=== PATIENT | male | born 1960 | race Caucasian/White ===

== ENCOUNTER 2020-12-26 15:05 | Emergency (ER) | payer OTHER ==
[~2020-12-26] VITALS: Ht 175.2 cm; Wt 80.0 kg
[2020-12-26] MEDS ORDERED: NS IV 1000 ML 1,000 ML IV STA (15:12)
--- NOTE | 2020-12-26 15:12 | ED General ---
General Stated Complaint: INCISIONAL BLEED History of Present Illness Date Seen by Provider: Dec 26, 2020 Time Seen by Provider: 15:10 Initial Comments 60-year-old male presents with post incisional bleeding. Patient had lung surgery on October 15 then again on December 09 on his left side. Patient reports today that he started having significant amount of bleeding come out of the incision on the left side of his chest. Incision is approximate 3 inch incision under his left breast. Patient is also got some minor shortness of breath. Patient [facility] at the [facility] in [place] and then the November surgery was done in the [facility]. Patient has some minor chronic shortness of breath but is significantly worse today. No report of fever. Patient's initial surgery was a partial lobectomy with a complete lobectomy with a second surgery. Allergies and Home Medications Allergies Coded Allergies: No Known Drug Allergies (Unverified , 12/26/20) Home Medications Hydrocodone Bit/Acetaminophen 1 Tab Tab, 1 TAB PO Q4H PRN for PAIN-MODERATE (5- 7), (Reported) Last Action: New Order Lisinopril 20 Mg Tablet, 20 MG PO DAILY, (Reported) Last Action: New Order Metoprolol Tartrate 25 Mg Tablet, 12.5 MG PO BID, (Reported) Last Action: New Order Omeprazole 20 Mg Capsule.dr, 20 MG PO DAILY, (Reported) Last Action: New Order Potassium Chloride 20 Meq Tablet.er, 20 MEQ PO DAILY, (Reported) Last Action: New Order Patient Home Medication List Home Medication List Reviewed: Yes Review of Systems Review of Systems Constitutional: No chills, No fever Respiratory: cough, short of breath Gastrointestinal: No abdominal pain, No nausea, No vomiting Musculoskeletal: no symptoms reported Skin: see HPI Psychiatric/Neurological: No Symptoms Reported Hematologic/Lymphatic: No Symptoms Reported Immunological/Allergic: no symptoms reported Physical Exam Vital Signs Vital Signs - First Documented 12/26/20 15:05 Temp 37.4 Pulse 140 Resp 41 B/P (MAP) 97/59 (72) Pulse Ox 95 O2 Delivery Nasal Cannula O2 Flow Rate 2.00 Capillary Refill : Height, Weight, BMI Height: '" Weight: lbs. oz. kg; BMI Method: General Appearance: Mild Distress HEENT: PERRL/EOMI, Moist Mucous Membranes Respiratory: Other (No lung sounds on the left, mild tachypnea) Cardiovascular: Tachycardia Extremity: Normal Capillary Refill, Normal Inspection Neurologic/Psychiatric: Alert, Oriented x3 Skin: Other (Approximate 10 cm incision with dehiscence and mild active bleeding in the left anterior chest wall right below breast, mild greenish discoloration to the skin consistent with probable infection) Focused Exam Lactate Level 12/26/20 15:15: Lactic Acid Level 1.73 Lactic Acid Level Laboratory Tests Test 12/26/20 15:15 Lactic Acid Level 1.73 MMOL/L (0.50-2.00) Procedures/Interventions Reason for Intubation: Acute respiratory failure Date of ETT Placement: Dec 26, 2020 Intubation Method: orotracheal Tube Size: 7.5 Medications: Etomidate, Rocuronium Positive End Tide CO2: Yes Intubation Complications: no complications ET tube below clavicles and above jase in appropriate position Progress/Results/Core Measures Suspected Sepsis SIRS Temperature: Pulse: Respiratory Rate: Laboratory Tests 12/26/20 15:15: White Blood Count 12.7H 12/26/20 18:26: White Blood Count 18.3H Blood Pressure / Mean: 12/26/20 15:15: Lactic Acid Level 1.73 Laboratory Tests 12/26/20 15:15: Creatinine 1.13, INR Comment 1.2, Platelet Count 615H, Total Bilirubin 0.4 12/26/20 18:26: Platelet Count 570H Results/Orders Lab Results Laboratory Tests Test 12/26/20 15:15 12/26/20 16:30 12/26/20 17:40 12/26/20 18:26 Range/Units White Blood Count 12.7 H 18.3 H 4.3-11.0 10^3/uL Red Blood Count 3.10 L 2.54 L 4.30-5.52 10^6/uL Hemoglobin 9.0 L 7.5 L 13.3-17.7 g/dL Hematocrit 28 L 24 L 40-54 % Mean Corpuscular Volume 90 93 80-99 fL Mean Corpuscular Hemoglobin 29 30 25-34 pg Mean Corpuscular Hemoglobin Concent 32 32 32-36 g/dL Red Cell Distribution Width 17.5 H 17.8 H 10.0-14.5 % Platelet Count 615 H 570 H 130-400 10^3/uL Mean Platelet Volume 10.2 10.2 9.0-12.2 fL Immature Granulocyte % (Auto) 2 % Neutrophils (%) (Auto) 79 H 42-75 % Lymphocytes (%) (Auto) 7 L 12-44 % Monocytes (%) (Auto) 13 H 0-12 % Eosinophils (%) (Auto) 0 0-10 % Basophils (%) (Auto) 0 0-10 % Neutrophils # (Auto) 10.0 H 1.8-7.8 X 10^3 Lymphocytes # (Auto) 0.9 L 1.0-4.0 X 10^3 Monocytes # (Auto) 1.6 H 0.0-1.0 X 10^3 Eosinophils # (Auto) 0.0 0.0-0.3 10^3/uL Basophils # (Auto) 0.0 0.0-0.1 10^3/uL Immature Granulocyte # (Auto) 0.2 H 0.0-0.1 10^3/uL Neutrophils % (Manual) 83 % Lymphocytes % (Manual) 8 % Monocytes % (Manual) 8 % Band Neutrophils 1 % Prothrombin Time 15.3 H 12.2-14.7 SEC INR Comment 1.2 0.8-1.4 Activated Partial Thromboplast Time 35 24-35 SEC Sodium Level 132 L 135-145 MMOL/L Potassium Level 4.7 3.6-5.0 MMOL/L Chloride Level 96 L 98-107 MMOL/L Carbon Dioxide Level 19 L 21-32 MMOL/L Anion Gap 17 H 5-14 MMOL/L Blood Urea Nitrogen 59 H 7-18 MG/DL Creatinine 1.13 0.60-1.30 MG/DL Estimat Glomerular Filtration Rate 66 BUN/Creatinine Ratio 52 Glucose Level 243 H 70-105 MG/DL Lactic Acid Level 1.73 0.50-2.00 MMOL/L Calcium Level 9.0 8.5-10.1 MG/DL Corrected Calcium 10.1 8.5-10.1 MG/DL Total Bilirubin 0.4 0.1-1.0 MG/DL Aspartate Amino Transf (AST/SGOT) 9 5-34 U/L Alanine Aminotransferase (ALT/SGPT) 9 0-55 U/L Alkaline Phosphatase 88 40-136 U/L Total Protein 6.7 6.4-8.2 GM/DL Albumin 2.6 L 3.2-4.5 GM/DL SARS-CoV-2 RNA (RT-PCR) Not Detected Not Detecte Blood Gas Puncture Site UNKNOWN Blood Gas Patient Temperature 37.4 Arterial Blood pH 7.18 *L 7.37-7.43 Arterial Blood Partial Pressure CO2 58 H 35-45 MMHG Arterial Blood Partial Pressure O2 57 L 79-93 MMHG Arterial Blood HCO3 22 L 23-27 MMOL/L Arterial Blood Total CO2 23.4 21.0-31.0 MMOL/L Arterial Blood Oxygen Saturation 81 L 94-100 % Arterial Blood Base Excess -7.3 L -2.5-2.5 MMOL/L Jasvir Test NEGATIVE Blood Gas Ventilator Setting NO Blood Gas Inspired Oxygen 2 My Orders Orders - NUÑEZ,GLENROY L DO Cbc With Automated Diff (12/26/20 15:12) Comprehensive Metabolic Panel (12/26/20 15:12) Lactic Acid Analyzer (12/26/20 15:12) Protime With Inr (12/26/20 15:12) Partial Thromboplastin Time (12/26/20 15:12) Type And Screen (12/26/20 15:12) Ct Angio Chest W (12/26/20 15:12) Chest 1 View Ap/Pa Only (12/26/20 15:12) Ns Iv 1000 Ml (Sodium Chloride 0.9%) (12/26/20 15:12) Ceftriaxone (Rocephin) (12/26/20 15:30) Manual Differential (12/26/20 15:15) Blood Culture (12/26/20 15:15) Blood Culture (12/26/20 15:39) Iohexol Injection (Omnipaque 350 Mg/Ml 1 (12/26/20 16:00) Di Iv Start (Assessment) .IV start (12/26/20 15:52) Received Contrast (Hold Metformin- Contr (12/26/20 16:00) Sodium Chloride Flush (Catheter Flush Sy (12/26/20 16:00) Ns (Ivpb) (Sodium Chloride 0.9% Ivpb Bag (12/26/20 16:00) Covid 19 Inhouse Test (12/26/20 16:14) Albuterol/Ipra Inhalation Soln (Duoneb I (12/26/20 16:15) Svn Small Volume Nebulizer (12/26/20 16:14) Tranexamic Acid Injection (Cyklokapron I (12/26/20 17:07) Ns Iv 1000 Ml (Sodium Chloride 0.9%) (12/26/20 17:28) Propofol Drip (Icu) (Diprivan Drip (Icu) (12/26/20 17:45) Arterial Blood Gas (12/26/20 17:44) Arterial Blood Gas (12/26/20 17:40) Chest 1 View Ap/Pa Only (12/26/20 17:51) Ketamine Syringe (Ketamine Syringe) (12/26/20 18:15) Cbc No Diff (12/26/20 18:19) Ns Iv 1000 Ml (Sodium Chloride 0.9%) (12/26/20 18:17) Ns Iv 500 Ml (Sodiu... W/Ketamine Inject (12/26/20 18:45) Ketamine Injection (Ketalar Injection) (12/26/20 18:50) Ns Iv 500 Ml (Sodium Chloride 0.9%) (12/26/20 18:50) Ns Iv 500 Ml (Sodium Chloride 0.9%) (12/26/20 19:00) Ns Iv 1000 Ml (Sodium Chloride 0.9%) (12/26/20 19:46) Medications Given in ED Current Medications Medications Dose Ordered Sig/Sandi Route Start Time Stop Time Status Last Admin Dose Admin Albuterol/ Ipratropium 3 ml ONCE ONCE INH 12/26/20 16:15 12/26/20 16:16 DC 12/26/20 16:29 3 ML Ceftriaxone Sodium 1000 mg/ Sterile Water 10 ml @ 200 mls/hr ONCE ONCE IV 12/26/20 15:30 12/26/20 15:32 DC 12/26/20 15:39 200 MLS/HR Iohexol 100 ml ONCE ONCE IV 12/26/20 16:00 12/26/20 16:01 DC 12/26/20 16:26 100 ML Ketamine HCl 500 mg STK-MED ONCE .ROUTE 12/26/20 18:50 12/26/20 18:53 DC 12/26/20 19:05 500 MG Sodium Chloride 10 ml NEEDED PRN IV 12/26/20 16:00 12/26/20 21:00 DC 12/26/20 16:26 10 ML Sodium Chloride 100 ml ONCE ONCE IV 12/26/20 16:00 12/26/20 16:01 DC 12/26/20 16:26 80 ML Sodium Chloride 500 ml @ ud STK-MED ONCE .ROUTE 12/26/20 18:50 12/26/20 18:53 DC 12/26/20 18:50 20 MLS/HR Sodium Chloride 1,000 ml @ ud STK-MED ONCE .ROUTE 12/26/20 17:28 12/26/20 17:32 DC 12/26/20 17:34 999 MLS/HR Sodium Chloride 1,000 ml @ ud STK-MED ONCE .ROUTE 12/26/20 18:17 12/26/20 18:20 DC 12/26/20 18:20 150 MLS/HR Tranexamic Acid 1,000 mg STK-MED ONCE .ROUTE 12/26/20 17:07 12/26/20 17:11 DC 12/26/20 17:10 1,000 MG Vital Signs/I&O 12/26/20 12/26/20 12/26/20 15:05 15:05 17:50 Temp 37.4 Pulse 140 139 Resp 41 B/P (MAP) 97/59 (72) 125/45 Pulse Ox 95 O2 Delivery Nasal Cannula Room Air O2 Flow Rate 2.00 2.00 Capillary Refill : Progress Note : Progress Note Patient had a clean dressing placed over his incisional dehiscence. While here in the ER patient continued to cough and then developed gross hemoptysis with his cough. Patient's O2 saturations then dropped into the 70s and we were unable to get it to improve with high flow nasal cannula. Patient was then intubated with a 7.5 ET tube using a glide scope with no complications. Patient was placed on a very low tidal volume at 350, PEEP of approximately 8 on her percent oxygen. Patient's O2 saturations improved to 100%. Patient was very difficult to keep sedated with combination of propofol ketamine and Versed used. I did initially call [facility] [place] who felt that they would not be able to appropriately treat patient and recommended the closest appropriate. I called [facility] who felt that patient needed to go back to the [facility] in [place]. They felt that since patient had minimal blood still coming out the ET tube and that his oxygen was at however sent that they declined transfer for him to go to the hospital with the cardiothoracic surgeon that performed the surgery. I called Francisco Javier Sanchez, [facility] in [facility] and patient was accepted by Dr. Garay who was patient's cardiothoracic surgeon. Patient remain in critical/guarded condition but O2 saturations remained stable at 100%. Patient did have a hemoglobin drop from 9- 7.5. Patient was also given TXA with concerns for possible hemothorax. Patient's chest x-ray did show significant infiltrate development from his initial chest x-ray. Patient was transferred via helicopter. Diagnostic Imaging Diagonstic Imaging: CT Plain Films/CT/US/NM/MRI: chest Comments Date of Exam:12/26/20 CT ANGIO CHEST W PROCEDURE: CT angiography of the chest with contrast. TECHNIQUE: Multiple contiguous axial images were obtained through the chest after uneventful bolus administration of intravenous contrast. 3D reconstructed CTA MIP acquisitions were also performed. Auto Exposure Controls were utilized during the CT exam to meet ALARA standards for radiation dose reduction. INDICATION: Lung cancer. Bleeding at surgical site. COMPARISON: Chest x-ray from the same day. FINDINGS: The heart is normal in size. The pulmonary arteries are diagnostic to the early segmental level but no filling defect is seen to indicate a pulmonary embolus. No significant lymphadenopathy is seen in the mediastinum. The right lung is clear with no pleural effusion or pneumothorax. There is a left hydropneumothorax which is moderate in size and appears loculated to the left upper lung. There is a large soft tissue density at the anterior right lung which measures up to 9.0 x 4.3 cm on axial imaging. There is significant suture material throughout the upper lung. There is gas extending through the pleural space at the anterior left lung base into the chest wall and into the soft tissues of the left chest. This appears contiguous with the skin incision site. There is also a small likely loculated effusion at the left lung base. Imaged portions of the upper abdomen demonstrate a 2.6 cm left adrenal nodule which is indeterminate. There appear to be fractures of the left anterior 5th and 6th ribs or, more possibly, osteotomies. IMPRESSION: 1. Moderate-sized loculated hydropneumothorax at the left lung apex with small loculated pleural effusion at the left lung base. 2. Large soft tissue density at the anterior left lung. This could represent consolidated lung, hemorrhage, infection or residual neoplasm. No active contrast extravasation is seen. No prior CT is available. 3. Significant gas extending through the anterior left pleural space into the soft tissues of the chest. There are fractures or osteotomies of the anterior left ribs. 4. Indeterminate left adrenal nodule, could represent metastatic lesion. Recommend nonemergent follow-up with adrenal mass contrast protocol. Reviewed: Reviewed by Me, Discussed w/Radiologist, Reviewed/Discussed Diagonstic Imaging: Xray Plain Films/CT/US/NM/MRI: chest Comments ate of Exam:12/26/20 CHEST 1 VIEW AP/PA ONLY INDICATION: Lung cancer. EXAMINATION: Portable erect AP chest at 3:31 p.m. COMPARISON: There is no prior study available for comparison. FINDINGS: The left lung does seem smaller than the right lung and there are surgical clips overlying the left lung base. There are also vague areas of increased density throughout the left perihilar region, left mid lung and left lower lobe. Given the patient's history of lung cancer, these abnormal densities could be neoplastic in nature. The possibility that there is an element of pneumonia/atelectasis present should also be considered. The left apex does seem somewhat lucent but there is no clear evidence for a pneumothorax. The right lung is clear. The heart size is within normal limits. The mediastinum is not widened. There is a small rounded area of increased density near the costovertebral junction at T5-T6. This may be secondary to degenerative disease. An isolated osteoblastic metastatic focus should also be considered. IMPRESSION: 1. The appearance of the left lung is grossly abnormal. Whether this is related to pneumonia/atelectasis, neoplastic disease or a combination of both is not certain. If previous studies are available they would be helpful comparison. If there are no prior exams, then CT of the chest would be recommended for further study. 2. There is no acute cardiopulmonary abnormality noted otherwise. Reviewed: Reviewed by Me, Reviewed/Discussed Diagonstic Imaging: Xray Plain Films/CT/US/NM/MRI: chest Comments Date of Exam:12/26/20 CHEST 1 VIEW AP/PA ONLY INDICATION: Tube placement . TECHNIQUE: Single view chest 5:41 PM. CORRELATION STUDY: 12/26/2020. FINDINGS: Endotracheal tube has been placed, tip projecting over the trachea above the jase and below the clavicles. Extensive progressive consolidation of the left lung which is rather dense and with lung volume loss has progressed. Right lung is a slightly hyperinflated. Mediastinal structures are largely obscured but appear generally stable. Presumed skin maya over the left lower chest. IMPRESSION: Interval intubation. Extensive and progressive consolidation through the large portion of the smaller left lung. Critical Care Note Critical Care Total Time (minutes) Patient is critical care time was approximately 2.5 hours Departure Impression Primary Impression: Acute respiratory failure Qualified Codes: J96.01 - Acute respiratory failure with hypoxia; J96.02 - Acute respiratory failure with hypercapnia Additional Impressions: Hemoptysis Abnormal finding on lung imaging Disposition: XF T-TRM HOSP Condition: Critical Transfer Transfer Reason: Exceeds level of care Time Spoke to Accepting Phy: 19:00 Transfer Facility: [facility] in [facility] Method of Transfer: GLENROY Carballo DO Dec 26, 2020 15:12
[2020-12-26 15:30] LABS: HEMATOCRIT 28 % (40-54); MEAN CORPUSCULAR HEMOGLOBIN 29 pg (25-34); MEAN CORPUSCULAR HGB CONC 32 g/dL (32-36); MEAN CORPUSCULAR VOLUME 90 fL (80-99); WHITE BLOOD COUNT 12.7 10^3/uL (4.3-11.0)
[2020-12-26] MEDS ORDERED: cefTRIAXone 1,000 MG in WATER (STERILE) FOR INJECTION 10 ML IV ONE (15:30)
[2020-12-26 15:31] LABS: BASOPHILS % (AUTO) 0 % (0-10); EOSINOPHILS % (AUTO) 0 % (0-10); LYMPHOCYTES # (AUTO) 0.9 X 10^3 (1.0-4.0); LYMPHOCYTES % (AUTO) 7 % (12-44); MEAN PLATELET VOLUME 10.2 fL (9.0-12.2); MONOCYTES # (AUTO) 1.6 X 10^3 (0.0-1.0); MONOCYTES % (AUTO) 13 % (0-12); NEUTROPHILS % (AUTO) 79 % (42-75); PLATELET COUNT 615 10^3/uL (130-400)
[2020-12-26 15:54] LABS: INR 1.2 (0.8-1.4); PROTHROMBIN TIME PATIENT 15.3 SEC (12.2-14.7)
[2020-12-26 15:58] LABS: ALBUMIN 2.6 GM/DL (3.2-4.5); BILIRUBIN,TOTAL 0.4 MG/DL (0.1-1.0); CREATININE SERUM 1.13 MG/DL (0.60-1.30); POTASSIUM 4.7 MMOL/L (3.6-5.0); TOTAL PROTEIN 6.7 GM/DL (6.4-8.2)
[2020-12-26] MEDS ORDERED: HOLD METFORMIN - RECEIVED CONTRAST 20 ML VIAL IV SCH (16:00)
[2020-12-26] MEDS ORDERED: IOHEXOL 350 MG/ML 100 ML (OMNIPAQUE 350) VIAL IV ONE (16:00)
[2020-12-26] MEDS ORDERED: NS 100 ML (IVPB) BAG IV ONE (16:00)
[2020-12-26] MEDS ORDERED: CATHETER FLUSH 10 ML SYR IV PRN (16:00)
--- NOTE | 2020-12-26 16:06 | Diagnostic Imaging Report ---
INDICATION: Lung cancer. EXAMINATION: Portable erect AP chest at 3:31 p.m. COMPARISON: There is no prior study available for comparison. FINDINGS: The left lung does seem smaller than the right lung and there are surgical clips overlying the left lung base. There are also vague areas of increased density throughout the left perihilar region, left mid lung and left lower lobe. Given the patient's history of lung cancer, these abnormal densities could be neoplastic in nature. The possibility that there is an element of pneumonia/atelectasis present should also be considered. The left apex does seem somewhat lucent but there is no clear evidence for a pneumothorax. The right lung is clear. The heart size is within normal limits. The mediastinum is not widened. There is a small rounded area of increased density near the costovertebral junction at T5-T6. This may be secondary to degenerative disease. An isolated osteoblastic metastatic focus should also be considered. IMPRESSION: 1. The appearance of the left lung is grossly abnormal. Whether this is related to pneumonia/atelectasis, neoplastic disease or a combination of both is not certain. If previous studies are available they would be helpful comparison. If there are no prior exams, then CT of the chest would be recommended for further study. 2. There is no acute cardiopulmonary abnormality noted otherwise. Dictated by: Dictated on workstation # [id number]
[2020-12-26] MEDS ORDERED: RT-ALBUTEROL/IPRATROPIUM 3 ML (DUONEB) VIAL INH ONE (16:15)
[2020-12-26] MEDS ORDERED: POTA-51 PO (16:24)
[2020-12-26] MEDS ORDERED: METO-333 PO (16:24)
[2020-12-26] MEDS ORDERED: TIOT4MIS3 IH (16:24)
[2020-12-26] MEDS ORDERED: LISI20TA26 PO (16:24)
[2020-12-26] MEDS ORDERED: ACHD5005 PO (16:24)
[2020-12-26] MEDS ORDERED: OMEP20CA18 PO (16:24)
[2020-12-26 16:25] LABS: BAND NEUTROPHILS 1 %; LYMPHOCYTES % (MANUAL) 8 %; MONOCYTES % (MANUAL) 8 %; NEUTROPHILS % (MANUAL) 83 %
[2020-12-26] MEDS ORDERED: TRANEXAMIC ACID 100 MG/ML 10 ML INJECTION ONE (17:07)
--- NOTE | 2020-12-26 17:18 | Diagnostic Imaging Report ---
PROCEDURE: CT angiography of the chest with contrast. TECHNIQUE: Multiple contiguous axial images were obtained through the chest after uneventful bolus administration of intravenous contrast. 3D reconstructed CTA MIP acquisitions were also performed. Auto Exposure Controls were utilized during the CT exam to meet ALARA standards for radiation dose reduction. INDICATION: Lung cancer. Bleeding at surgical site. COMPARISON: Chest x-ray from the same day. FINDINGS: The heart is normal in size. The pulmonary arteries are diagnostic to the early segmental level but no filling defect is seen to indicate a pulmonary embolus. No significant lymphadenopathy is seen in the mediastinum. The right lung is clear with no pleural effusion or pneumothorax. There is a left hydropneumothorax which is moderate in size and appears loculated to the left upper lung. There is a large soft tissue density at the anterior right lung which measures up to 9.0 x 4.3 cm on axial imaging. There is significant suture material throughout the upper lung. There is gas extending through the pleural space at the anterior left lung base into the chest wall and into the soft tissues of the left chest. This appears contiguous with the skin incision site. There is also a small likely loculated effusion at the left lung base. Imaged portions of the upper abdomen demonstrate a 2.6 cm left adrenal nodule which is indeterminate. There appear to be fractures of the left anterior 5th and 6th ribs or, more possibly, osteotomies. IMPRESSION: 1. Moderate-sized loculated hydropneumothorax at the left lung apex with small loculated pleural effusion at the left lung base. 2. Large soft tissue density at the anterior left lung. This could represent consolidated lung, hemorrhage, infection or residual neoplasm. No active contrast extravasation is seen. No prior CT is available. 3. Significant gas extending through the anterior left pleural space into the soft tissues of the chest. There are fractures or osteotomies of the anterior left ribs. 4. Indeterminate left adrenal nodule, could represent metastatic lesion. Recommend nonemergent follow-up with adrenal mass contrast protocol. Findings discussed with GLENROY NUÑEZ DO by Dr. Martinez, on 12/26/2020 4:57 PM. Dictated by: Dictated on workstation # [id number]
[2020-12-26] MEDS ORDERED: NS IV 1000 ML 1,000 ML ONE ×3 (17:28→19:46)
[2020-12-26] MEDS ORDERED: PROPOFOL DRIP (ICU) 100 ML IV SCH (17:45)
[2020-12-26 17:51] LABS: ABG BASE EXCESS -7.3 MMOL/L (-2.5-2.5); ABG OXYGEN SATURATION 81 % (94-100); ABG PCO2 58 MMHG (35-45); ABG PO2 57 MMHG (79-93); ABG TCO2 23.4 MMOL/L (21.0-31.0)
[2020-12-26 17:53] LABS: ALLENS TEST NEGATIVE; INSPIRED O2 2
[2020-12-26 17:54] LABS: PATIENT TEMP 37.4; VENTILATOR NO
[2020-12-26 17:55] LABS: ABG PH 7.18 (7.37-7.43)
--- NOTE | 2020-12-26 18:10 | Diagnostic Imaging Report ---
INDICATION: Tube placement . TECHNIQUE: Single view chest 5:41 PM. CORRELATION STUDY: 12/26/2020. FINDINGS: Endotracheal tube has been placed, tip projecting over the trachea above the jase and below the clavicles. Extensive progressive consolidation of the left lung which is rather dense and with lung volume loss has progressed. Right lung is a slightly hyperinflated. Mediastinal structures are largely obscured but appear generally stable. Presumed skin maya over the left lower chest. IMPRESSION: Interval intubation. Extensive and progressive consolidation through the large portion of the smaller left lung. Dictated by: Dictated on workstation # [id number]
[2020-12-26] MEDS ORDERED: KETAMINE SYRINGE 50 MG/5 ML SYRINGE IV ONE (18:15)
[2020-12-26 18:27] LABS: HEMATOCRIT 24 % (40-54); HEMOGLOBIN 7.5 g/dL (13.3-17.7); MEAN CORPUSCULAR HEMOGLOBIN 30 pg (25-34); MEAN CORPUSCULAR HGB CONC 32 g/dL (32-36); MEAN CORPUSCULAR VOLUME 93 fL (80-99); MEAN PLATELET VOLUME 10.2 fL (9.0-12.2); PLATELET COUNT 570 10^3/uL (130-400); WHITE BLOOD COUNT 18.3 10^3/uL (4.3-11.0)
[2020-12-26] MEDS ORDERED: KETAMINE INJECTION 500 MG in NS IV 500 ML 500 ML IV SCH (18:45)
[2020-12-26] MEDS ORDERED: NS IV 500 ML 500 ML ONE (18:50)
[2020-12-26] MEDS ORDERED: KETAMINE HCL 100 MG/ML 5 ML VIAL ONE (18:50)
[2020-12-26] MEDS ORDERED: NS IV 500 ML 500 ML IV SCH (19:00)
[2020-12-26 20:35] VITALS: BP 101/54
== END 2020-12-26 20:35 | disposition short-term general hospital (02) ==
LOC: ER FS 15:10
DX: J96.00 Acute respiratory failure, unspecified whether with hypoxia or hypercapnia (principal); R04.2 Hemoptysis; R91.8 Other nonspecific abnormal finding of lung field; Z90.2 Acquired absence of lung [part of]; Z20.822 Contact with and (suspected) exposure to COVID-19
CPT/HCPCS: 31500; 36415; 51702; 71045; 71275; 80053; 82805; 83605; 85007; 85027; 85610; 85730; 86850; 86900; 86901; 87040; 87636; 99291

== ENCOUNTER 2021-04-19 18:33 | Emergency (ER) | payer OTHER ==
--- OUTSIDE RECORDS SUMMARY | 2021-04-19 18:38 | XMS REPORT | Clinical Summary ---
Demographics Preferred Language Unknown Marital Status Unknown Holiness Affiliation Unknown Race Unknown Ethnic Group Unknown Author Author [facility] Organization [facility] Address Unknown Phone Unavailable Care Team Providers Care Hardware Trainer Name Role Phone PCP Unavailable Source Comments Some departments are not documenting in the electronic medical record. If you d o not see the information that you expected, contact Release of Information in [facility] Information Management department at [phone] for further assistan ce in locating additional records.[facility] Allergies Not on File Medications Not on file Active Problems Not on file Social History Date Tobacco Use Types Packs/Day Years Used Never Assessed Sex Assigned at Date Recorded Not on file Last Filed Vital Signs Not on file Plan of Treatment Health Maintenance Due Date Last Done Comments HIV SCREENING 1975 DTAP/TDAP VACCINES (1 - 01/29/1976 Tdap) HEPATITIS C SCREENING 01/29/1976 PHYSICAL (COMPREHENSIVE) 01/29/1976 EXAM COLORECTAL CANCER 01/29/2008 SCREENING SHINGLES RECOMBINANT 01/29/2008 VACCINE (1 of 2) INFLUENZA VACCINE 11/29/2020 Results Not on filefrom Last 3 Months
--- NOTE | 2021-04-19 18:48 | ED General ---
General Stated Complaint: POTASSIUM LOW Source of Information: Patient Exam Limitations: No Limitations History of Present Illness Date Seen by Provider: Apr 19, 2021 Time Seen by Provider: 18:37 Initial Comments 61yoM with PMH of lung cancer s/p partial lobectomy complicated by infection and cardiac arrest that is coming in after gets meds via home health for lung infection and ootassium was tested today and was told it was critically low and he needs to go to the ER. He is completely asymptomatic. Allergies and Home Medications Allergies Coded Allergies: No Known Drug Allergies (Unverified , 12/26/20) Patient Home Medication List Home Medication List Reviewed: Yes Hydrocodone Bit/Acetaminophen (HYDROcodone/APAP 5 MG/325 MG TAB) 1 Tab Tab, 1 TAB PO Q4H PRN for PAIN-MODERATE (5-7), (Reported) Entered as Reported by: OTILIO BACON on 12/26/201623 Lisinopril (Lisinopril) 20 Mg Tablet, 20 MG PO DAILY, (Reported) Entered as Reported by: OTILIO BACON on 12/26/201623 Metoprolol Tartrate (Metoprolol Tartrate) 25 Mg Tablet, 12.5 MG PO BID, (Reported) Entered as Reported by: OTILIO BACON on 12/26/201623 Omeprazole (Omeprazole) 20 Mg Capsule.dr, 20 MG PO DAILY, (Reported) Entered as Reported by: OTILIO BACON on 12/26/201623 Potassium Chloride (Potassium Chloride) 20 Meq Tablet.er, 20 MEQ PO DAILY, (Reported) Entered as Reported by: OTILIO BACON on 12/26/201623 Tiotropium Br/Olodaterol HCl (Stiolto Respimat Inhal [place]) 4 Gm Mist.inhal, 4 GM IH, (Reported) Entered as Reported by: OTILIO BACON on 12/26/201623 Review of Systems Review of Systems Constitutional: No chills, No fever EENTM: No blurred vision Respiratory: No cough, No short of breath Cardiovascular: No chest pain Gastrointestinal: No abdominal pain, No diarrhea, No nausea, No vomiting Genitourinary: no symptoms reported Musculoskeletal: no symptoms reported Skin: no symptoms reported Psychiatric/Neurological: No Symptoms Reported Hematologic/Lymphatic: No Symptoms Reported Immunological/Allergic: no symptoms reported All Other Systems Reviewed Negative Unless Noted: Yes Past Dxjpodu-Ckejsz-Ljvlmb Hx Patient Social History Substance use?: No Past Medical History Surgery/Hospitalization HX: L Lobectomy, L Thoracotomy, Lung Cancer, COPD Surgeries: Yes Physical Exam Vital Signs Vital Signs - First Documented 04/19/21 18:40 Temp 36.7 Pulse 93 Resp 18 B/P (MAP) 99/52 (68) Pulse Ox 98 O2 Delivery Room Air Capillary Refill : Height, Weight, BMI Height: '" Weight: lbs. oz. kg; 26.00 BMI Method: General Appearance: No Apparent Distress, WD/WN HEENT: PERRL/EOMI, Normal ENT Inspection, Pharynx Normal Neck: Full Range of Motion, Normal Inspection, Non Tender, Supple Respiratory: Chest Non Tender, Lungs Clear (decreased breath sounds on left), Normal Breath Sounds, No Accessory Muscle Use, No Respiratory Distress Cardiovascular: Regular Rate, Rhythm, No Edema, Normal Peripheral Pulses Gastrointestinal: Normal Bowel Sounds, Non Tender, Soft; No Distended, No Guarding Back: Normal Inspection, No CVA Tenderness, No Vertebral Tenderness Extremity: Normal Capillary Refill, Normal Inspection, Normal Range of Motion, Non Tender, No Calf Tenderness, No Pedal Edema Neurologic/Psychiatric: Alert, No Motor/Sensory Deficits, Normal Mood/Affect Skin: Normal Color, Warm/Dry Lymphatic: No Adenopathy Procedures/Interventions Date of ETT Placement: Dec 26, 2020 Time of ETT Placement: 1728 Progress/Results/Core Measures Suspected Sepsis SIRS Temperature: Pulse: Respiratory Rate: Laboratory Tests 04/19/21 18:47: White Blood Count 10.6 Blood Pressure / Mean: Laboratory Tests 04/19/21 18:47: Creatinine 0.71, Platelet Count 339, Total Bilirubin 0.2 Results/Orders Lab Results Laboratory Tests Test 04/19/21 18:47 Range/Units White Blood Count 10.6 4.3-11.0 10^3/uL Red Blood Count 4.06 L 4.30-5.52 10^6/uL Hemoglobin 12.0 L 13.3-17.7 g/dL Hematocrit 37 L 40-54 % Mean Corpuscular Volume 91 80-99 fL Mean Corpuscular Hemoglobin 30 25-34 pg Mean Corpuscular Hemoglobin Concent 32 32-36 g/dL Red Cell Distribution Width 19.9 H 10.0-14.5 % Platelet Count 339 130-400 10^3/uL Mean Platelet Volume 10.7 9.0-12.2 fL Immature Granulocyte % (Auto) 0 % Neutrophils (%) (Auto) 46 42-75 % Lymphocytes (%) (Auto) 45 H 12-44 % Monocytes (%) (Auto) 5 0-12 % Eosinophils (%) (Auto) 4 0-10 % Basophils (%) (Auto) 0 0-10 % Neutrophils # (Auto) 4.9 1.8-7.8 X 10^3 Lymphocytes # (Auto) 4.8 H 1.0-4.0 X 10^3 Monocytes # (Auto) 0.6 0.0-1.0 X 10^3 Eosinophils # (Auto) 0.4 H 0.0-0.3 10^3/uL Basophils # (Auto) 0.0 0.0-0.1 10^3/uL Immature Granulocyte # (Auto) 0.0 0.0-0.1 10^3/uL Sodium Level 144 135-145 MMOL/L Potassium Level 3.3 L 3.6-5.0 MMOL/L Chloride Level 104 98-107 MMOL/L Carbon Dioxide Level 27 21-32 MMOL/L Anion Gap 13 5-14 MMOL/L Blood Urea Nitrogen 12 7-18 MG/DL Creatinine 0.71 0.60-1.30 MG/DL Estimat Glomerular Filtration Rate 112 BUN/Creatinine Ratio 17 Glucose Level 67 L 70-105 MG/DL Calcium Level 9.0 8.5-10.1 MG/DL Corrected Calcium 9.6 8.5-10.1 MG/DL Magnesium Level 1.8 1.6-2.4 MG/DL Total Bilirubin 0.2 0.1-1.0 MG/DL Aspartate Amino Transf (AST/SGOT) 13 5-34 U/L Alanine Aminotransferase (ALT/SGPT) 11 0-55 U/L Alkaline Phosphatase 95 40-136 U/L Total Protein 7.1 6.4-8.2 GM/DL Albumin 3.2 3.2-4.5 GM/DL My Orders Orders - ОЛЕГ REYNOLDS MD Cbc With Automated Diff (04/19/21 18:48) Comprehensive Metabolic Panel (04/19/21 18:48) Magnesium (04/19/21 18:48) Ed Iv/Invasive Line Start (04/19/21 18:54) Ekg Tracing (04/19/21 18:54) Monitor-Rhythm Ecg Trace Only (04/19/21 18:54) Lactated Ringers (Lr 1000 Ml Iv Solution (04/19/21 18:54) Potassium Chloride (Tablet) (K Dur Table (04/19/21 19:31) Vital Signs/I&O 04/19/21 18:40 Temp 36.7 Pulse 93 Resp 18 B/P (MAP) 99/52 (68) Pulse Ox 98 O2 Delivery Room Air Capillary Refill : Progress Note : Progress Note 61-year-old male with above history coming in due to reported low potassium. ABCs were intact and vitals were stable on presentation. He has no acute complaints at this time. EKG with prolonged QT at 523 but no other significant findings. No ectopy seen. Fortunately, repeat potassium here is 3.3. He got a liter of lactated Ringer's and then repleted oral potassium. He does take potassium daily so I told him to continue this on top of the dose I gave him. I believe he is stable for discharge with outpatient follow-up. He was sent home with strict return precautions. ECG Initial ECG Impression Date: Apr 19, 2021 Initial ECG Impression Time: 18:55 Initial ECG Rate: 89 Initial ECG Rhythm: Normal Sinus Comment Narrow QRS, borderline left axis deviation, no significant ST changes or T wave abnormalities, prolonged QT with a QTC of 523 Departure Impression Primary Impression: Hypokalemia Disposition: 01 HOME, SELF-CARE Condition: Stable Departure-Patient Inst. Decision time for Depature: 19:36 Referrals: NO,LOCAL PHYSICIAN (PCP/Family) Primary Care Physician Patient Instructions: Hypokalemia (DC) Add. Discharge Instructions: Your potassium was only slightly low at 3.3 and we gave you some oral as well as some in your IV. Please continue to take your regular potassium. Tomorrow take a double dose and then after that you can continue to take your regular dosing. Continue to follow-up with your regular doctor and they can get repeat labs to make sure it is trending up. ОЛЕГ REYNOLDS MD Apr 19, 2021 18:48
[2021-04-19] MEDS ORDERED: LACTATED RINGERS 1,000 ML IV STA (18:54)
[2021-04-19 19:11] LABS: BASOPHILS % (AUTO) 0 % (0-10); EOSINOPHILS # (AUTO) 0.4 10^3/uL (0.0-0.3); EOSINOPHILS % (AUTO) 4 % (0-10); HEMATOCRIT 37 % (40-54); LYMPHOCYTES # (AUTO) 4.8 X 10^3 (1.0-4.0); LYMPHOCYTES % (AUTO) 45 % (12-44); MEAN CORPUSCULAR HEMOGLOBIN 30 pg (25-34); MEAN CORPUSCULAR HGB CONC 32 g/dL (32-36); MEAN CORPUSCULAR VOLUME 91 fL (80-99); MEAN PLATELET VOLUME 10.7 fL (9.0-12.2); MONOCYTES # (AUTO) 0.6 X 10^3 (0.0-1.0); MONOCYTES % (AUTO) 5 % (0-12); NEUTROPHILS # (AUTO) 4.9 X 10^3 (1.8-7.8); NEUTROPHILS % (AUTO) 46 % (42-75); PLATELET COUNT 339 10^3/uL (130-400); WHITE BLOOD COUNT 10.6 10^3/uL (4.3-11.0)
[2021-04-19 19:27] LABS: BILIRUBIN,TOTAL 0.2 MG/DL (0.1-1.0); CREATININE SERUM 0.71 MG/DL (0.60-1.30); MAGNESIUM 1.8 MG/DL (1.6-2.4); POTASSIUM 3.3 MMOL/L (3.6-5.0)
[2021-04-19] MEDS ORDERED: MAGNESIUM 1 GM/100 ML IVPB 100 ML IV STA (19:27)
[2021-04-19] MEDS ORDERED: POTASSIUM CL 10MEQ/50ML IVPB 50 ML IV STA (19:27)
[2021-04-19 19:28] LABS: ALBUMIN 3.2 GM/DL (3.2-4.5); TOTAL PROTEIN 7.1 GM/DL (6.4-8.2)
[2021-04-19] MEDS ORDERED: KCL 20 MEQ TAB (K-DUR) PO STA (19:31)
[2021-04-19 19:39] VITALS: BP 97/49
== END 2021-04-19 19:43 | disposition home or self-care (01) ==
LOC: EDUNIT# 18:33 → ER FS 18:34
DX: E87.6 Hypokalemia (principal); J44.9 Chronic obstructive pulmonary disease, unspecified; Z86.79 Personal history of other diseases of the circulatory system; Z85.118 Personal history of other malignant neoplasm of bronchus and lung; Z90.2 Acquired absence of lung [part of]; Z79.899 Other long term (current) drug therapy
CPT/HCPCS: 36415; 80053; 83735; 85025; 93005; 93041

== ENCOUNTER → 2021-04-19 | Outpatient (CLI) | payer OTHER ==
[~2021-04-19] MED LIST: ACHD5005 PO; LISI20TA26 PO; METO-333 PO; OMEP20CA18 PO; POTA-51 PO; TIOT4MIS3 IH
[2021-04-19 12:08] LABS: BASOPHILS % (AUTO) 0 % (0-10); EOSINOPHILS % (AUTO) 4 % (0-10); HEMATOCRIT 32 % (40-54); HEMOGLOBIN 10.1 g/dL (13.3-17.7); LYMPHOCYTES % (AUTO) 34 % (12-44); MEAN CORPUSCULAR HEMOGLOBIN 30 pg (25-34); MEAN CORPUSCULAR HGB CONC 31 g/dL (32-36); MEAN CORPUSCULAR VOLUME 94 fL (80-99); MONOCYTES % (AUTO) 6 % (0-12); NEUTROPHILS % (AUTO) 56 % (42-75); PLATELET COUNT 269 10^3/uL (130-400)
[2021-04-19 12:09] LABS: EOSINOPHILS # (AUTO) 0.4 10^3/uL (0.0-0.3); LYMPHOCYTES # (AUTO) 3.5 X 10^3 (1.0-4.0); MONOCYTES # (AUTO) 0.6 X 10^3 (0.0-1.0); NEUTROPHILS # (AUTO) 5.6 X 10^3 (1.8-7.8)
[2021-04-19 14:24] LABS: BILIRUBIN,TOTAL 0.2 MG/DL (0.1-1.0); CALCIUM 6.6 MG/DL (8.5-10.1); CREATININE SERUM 0.49 MG/DL (0.60-1.30); TOTAL PROTEIN 5.1 GM/DL (6.4-8.2)
[2021-04-19 14:25] LABS: ALBUMIN 2.3 GM/DL (3.2-4.5)
[2021-04-19 14:29] LABS: POTASSIUM 2.5 MMOL/L (3.6-5.0)
== END ==
LOC: IHC 11:54
PROVIDERS: ATTEND Internal Medicine
DX: C34.12 Malignant neoplasm of upper lobe, left bronchus or lung (principal)
CPT/HCPCS: 80053; 85025

== ENCOUNTER → 2021-04-21 | Outpatient (CLI) | payer OTHER ==
[2021-04-21 12:19] LABS: POTASSIUM 3.8 MMOL/L (3.6-5.0)
[2021-04-21 12:20] LABS: CALCIUM 8.6 MG/DL (8.5-10.1); CREATININE SERUM 0.64 MG/DL (0.60-1.30)
== END ==
LOC: IHC 10:53
PROVIDERS: ATTEND Internal Medicine
DX: C34.12 Malignant neoplasm of upper lobe, left bronchus or lung (principal)
CPT/HCPCS: 80048

== ENCOUNTER → 2021-04-26 | Outpatient (CLI) | payer OTHER ==
[2021-04-26 18:24] LABS: HEMATOCRIT 34 % (40-54); HEMOGLOBIN 11.3 g/dL (13.3-17.7); LYMPHOCYTES % (AUTO) 31 % (12-44); MEAN CORPUSCULAR HEMOGLOBIN 31 pg (25-34); MEAN CORPUSCULAR HGB CONC 33 g/dL (32-36); MEAN CORPUSCULAR VOLUME 94 fL (80-99); MEAN PLATELET VOLUME 11.8 fL (9.0-12.2); MONOCYTES % (AUTO) 7 % (0-12); NEUTROPHILS % (AUTO) 57 % (42-75); PLATELET COUNT 330 10^3/uL (130-400)
[2021-04-26 18:25] LABS: BASOPHILS % (AUTO) 0 % (0-10); EOSINOPHILS # (AUTO) 0.3 10^3/uL (0.0-0.3); EOSINOPHILS % (AUTO) 4 % (0-10); LYMPHOCYTES # (AUTO) 2.8 X 10^3 (1.0-4.0); MONOCYTES # (AUTO) 0.7 X 10^3 (0.0-1.0); NEUTROPHILS # (AUTO) 5.2 X 10^3 (1.8-7.8)
[2021-04-26 18:33] LABS: POTASSIUM 3.7 MMOL/L (3.6-5.0)
[2021-04-26 18:34] LABS: ALBUMIN 3.3 GM/DL (3.2-4.5); BILIRUBIN,TOTAL 0.3 MG/DL (0.1-1.0); CALCIUM 8.7 MG/DL (8.5-10.1); CREATININE SERUM 0.67 MG/DL (0.60-1.30); TOTAL PROTEIN 7.1 GM/DL (6.4-8.2)
[2021-04-26 19:28] LABS: ERYTHROCYTE SEDIMENTATION RATE 38 MM/HR (0-30)
== END ==
LOC: IHC 17:45
DX: Z79.2 Long term (current) use of antibiotics (principal)
CPT/HCPCS: 80053; 85025; 85652; 86141

== ENCOUNTER 2021-05-02 17:24 | Emergency (ER) | payer OTHER ==
[~2021-05-02] VITALS: Ht 172 cm; Wt 85.0 kg
--- NOTE | 2021-05-02 17:44 | ED Respiratory ---
General Stated Complaint: SOB Source: patient Exam Limitations: no limitations History of Present Illness Date Seen by Provider: May 02, 2021 Time Seen by Provider: 17:31 Initial Comments 61-year-old male with past medical history of lung cancer status post partial lobectomy on the left, COPD, hypertension coming in via EMS from home due to shortness of breath. He says he has been increasingly more short of breath since Monday. He says it is severe, constant, worsening, nothing seems to make it better or worse. He does have inhalers at home which he uses, and EMS reports he improved after a DuoNeb treatment. His initial oxygen saturation for them was 75%. After the DuoNeb he was in the 90s. He denies any cough, fever, chest pain, nausea, vomiting, diarrhea, fever, chills, focal weakness or numbness, or any other concerns. Of note, he says he still follows with home health and gets an oral antifungal medicine for a fungal infection in his lungs as well as an IV antibiotics through his PICC line for a lung infection as well that is dosed daily. He has received both of these medications as of today. Allergies and Home Medications Allergies Coded Allergies: No Known Drug Allergies (Unverified , 12/26/20) Patient Home Medication List Home Medication List Reviewed: Yes Hydrocodone Bit/Acetaminophen (HYDROcodone/APAP 5 MG/325 MG TAB) 1 Tab Tab, 1 TAB PO Q4H PRN for PAIN-MODERATE (5-7), (Reported) Entered as Reported by: OTILIO BACON on 12/26/201623 Lisinopril (Lisinopril) 20 Mg Tablet, 20 MG PO DAILY, (Reported) Entered as Reported by: OTILIO BACON on 12/26/201623 Metoprolol Tartrate (Metoprolol Tartrate) 25 Mg Tablet, 12.5 MG PO BID, (Reported) Entered as Reported by: OTILIO BACON on 12/26/201623 Omeprazole (Omeprazole) 20 Mg Capsule.dr, 20 MG PO DAILY, (Reported) Entered as Reported by: OTILIO BACON on 12/26/201623 Potassium Chloride (Potassium Chloride) 20 Meq Tablet.er, 20 MEQ PO DAILY, (Reported) Entered as Reported by: OTILIO BACON on 12/26/201623 Tiotropium Br/Olodaterol HCl (Stiolto Respimat Inhal [place]) 4 Gm Mist.inhal, 4 GM IH, (Reported) Entered as Reported by: OTILIO BACON on 12/26/201623 Review of Systems Review of Systems Constitutional: No chills, No fever EENTM: No blurred vision Respiratory: No cough; short of breath Cardiovascular: No chest pain Gastrointestinal: No abdominal pain, No diarrhea, No nausea, No vomiting Genitourinary: no symptoms reported Musculoskeletal: no symptoms reported Skin: no symptoms reported Psychiatric/Neurological: No Symptoms Reported Hematologic/Lymphatic: No Symptoms Reported Immunological/Allergic: no symptoms reported All Other Systems Reviewed Negative Unless Noted: Yes Past Ppvznjg-Vmhgio-Ztfwlk Hx Patient Social History Substance use?: No Past Medical History Surgery/Hospitalization HX: L Lobectomy, L Thoracotomy, Lung Cancer, COPD Surgeries: Yes Physical Exam Vital Signs - First Documented 05/02/21 17:42 Temp 36.1 Pulse 118 Resp 24 B/P (MAP) 160/96 (117) Pulse Ox 98 O2 Delivery Nasal Cannula O2 Flow Rate 3.00 Capillary Refill : Height: '" Weight: lbs. oz. kg; 26.00 BMI Method: General Appearance: WD/WN, mild distress Eyes: Bilateral Eye Normal Inspection HEENT: PERRL/EOMI, normal ENT inspection, pharynx normal Neck: non-tender, full range of motion, supple, normal inspection Respiratory: chest non-tender, accessory muscle use, crackles Cardiovascular: no edema, no murmur, tachycardia, other (left chest wall thoracotomy site clean/dry/intact/healed) Gastrointestinal: normal bowel sounds, non tender, soft; No distended, No guarding, No rebound; other (g tube in place with normal appearing skin surrounding it) Extremities: normal range of motion, non-tender, normal inspection, no pedal edema, no calf tenderness Neurologic/Psychiatric: no motor/sensory deficits, alert, normal mood/affect, oriented x 3 Skin: normal color, warm/dry Lymphatic: no adenopathy Focused Exam Lactate Level 05/02/21 17:35: Lactic Acid Level 1.08 Lactic Acid Level Laboratory Tests Test 05/02/21 17:35 Lactic Acid Level 1.08 MMOL/L (0.50-2.00) Procedures/Interventions Date of ETT Placement: Dec 26, 2020 Time of ETT Placement: 1728 Progress/Results/Core Measures Suspected Sepsis SIRS Temperature: Pulse: Respiratory Rate: Laboratory Tests 05/02/21 17:35: White Blood Count 7.7 Blood Pressure / Mean: 05/02/21 17:35: Lactic Acid Level 1.08 Laboratory Tests 05/02/21 17:35: Creatinine 0.49L, INR Comment 1.0, Platelet Count 316, Total Bilirubin 0.3 Results/Orders Lab Results Laboratory Tests Test 05/02/21 17:35 Range/Units White Blood Count 7.7 4.3-11.0 10^3/uL Red Blood Count 3.82 L 4.30-5.52 10^6/uL Hemoglobin 11.4 L 13.3-17.7 g/dL Hematocrit 36 L 40-54 % Mean Corpuscular Volume 93 80-99 fL Mean Corpuscular Hemoglobin 30 25-34 pg Mean Corpuscular Hemoglobin Concent 32 32-36 g/dL Red Cell Distribution Width 21.2 H 10.0-14.5 % Platelet Count 316 130-400 10^3/uL Mean Platelet Volume 11.2 9.0-12.2 fL Immature Granulocyte % (Auto) 0 % Neutrophils (%) (Auto) 53 42-75 % Lymphocytes (%) (Auto) 38 12-44 % Monocytes (%) (Auto) 7 0-12 % Eosinophils (%) (Auto) 2 0-10 % Basophils (%) (Auto) 0 0-10 % Neutrophils # (Auto) 4.1 1.8-7.8 X 10^3 Lymphocytes # (Auto) 2.9 1.0-4.0 X 10^3 Monocytes # (Auto) 0.5 0.0-1.0 X 10^3 Eosinophils # (Auto) 0.2 0.0-0.3 10^3/uL Basophils # (Auto) 0.0 0.0-0.1 10^3/uL Immature Granulocyte # (Auto) 0.0 0.0-0.1 10^3/uL Prothrombin Time 13.9 12.2-14.7 SEC INR Comment 1.0 0.8-1.4 Activated Partial Thromboplast Time 28 24-35 SEC Sodium Level 145 135-145 MMOL/L Potassium Level 3.6 3.6-5.0 MMOL/L Chloride Level 108 H 98-107 MMOL/L Carbon Dioxide Level 28 21-32 MMOL/L Anion Gap 9 5-14 MMOL/L Blood Urea Nitrogen 13 7-18 MG/DL Creatinine 0.49 L 0.60-1.30 MG/DL Estimat Glomerular Filtration Rate 172 BUN/Creatinine Ratio 27 Glucose Level 169 H 70-105 MG/DL Lactic Acid Level 1.08 0.50-2.00 MMOL/L Calcium Level 8.9 8.5-10.1 MG/DL Corrected Calcium 9.5 8.5-10.1 MG/DL Total Bilirubin 0.3 0.1-1.0 MG/DL Aspartate Amino Transf (AST/SGOT) 16 5-34 U/L Alanine Aminotransferase (ALT/SGPT) 15 0-55 U/L Alkaline Phosphatase 81 40-136 U/L Troponin I < 0.30 <0.30 NG/ML Pro-B-Type Natriuretic Peptide 5131.0 H <75.0 PG/ML Total Protein 6.8 6.4-8.2 GM/DL Albumin 3.3 3.2-4.5 GM/DL Influenza Type A Antigen NEGATIVE NEGATIVE Influenza Type B Antigen NEGATIVE NEGATIVE My Orders Orders - ОЛЕГ REYNOLDS MD Cbc With Automated Diff (05/02/21 17:38) Comprehensive Metabolic Panel (05/02/21 17:38) Blood Culture (05/02/21 17:38) Urinalysis (05/02/21 17:38) Urine Culture (05/02/21 17:38) Protime With Inr (05/02/21 17:38) Partial Thromboplastin Time (05/02/21 17:38) Chest 1 View Ap/Pa Only (05/02/21 17:38) Ed Iv/Invasive Line Start (05/02/21 17:38) Troponin I [place] (05/02/21 17:38) Vital Signs Adult Sepsis Patie Q15M (05/02/21 17:38) O2 (05/02/21 17:38) Lactic Acid Analyzer (05/02/21 17:38) Probnp Fs (05/02/21 17:38) Influenza A & B Antigens (05/02/21 17:38) Ct Angio Chest W (05/02/21 17:38) Covid 19 Inhouse Test (05/02/21 17:38) Lactated Ringers (Lr 1000 Ml Iv Solution (05/02/21 17:45) Iohexol Injection (Omnipaque 350 Mg/Ml 1 (05/02/21 18:00) Received Contrast (Hold Metformin- Contr (05/02/21 18:00) Sodium Chloride Flush (Catheter Flush Sy (05/02/21 18:00) Ns (Ivpb) (Sodium Chloride 0.9% Ivpb Bag (05/02/21 18:00) Medications Given in ED Current Medications Medications Dose Ordered Sig/Sandi Route Start Time Stop Time Status Last Admin Dose Admin Iohexol 125 ml ONCE ONCE IV 05/02/21 18:00 05/02/21 18:01 UNV 05/02/21 18:29 125 ML Sodium Chloride 10 ml NEEDED PRN IV 05/02/21 18:00 UNV 05/02/21 18:30 10 ML Sodium Chloride 100 ml ONCE ONCE IV 05/02/21 18:00 05/02/21 18:01 UNV 05/02/21 18:30 80 ML Vital Signs/I&O 05/02/21 17:42 Temp 36.1 Pulse 118 Resp 24 B/P (MAP) 160/96 (117) Pulse Ox 98 O2 Delivery Nasal Cannula O2 Flow Rate 3.00 Capillary Refill : Progress Note : Progress Note 61-year-old male with above history coming in due to hypoxia and shortness of breath. After the initial breathing treatment his oxygen saturation was 94% on room air. Slowly over the course of his stay he trended down to 86% on room air and required between 2 to 4 L of oxygen to bring him up to greater than 92%. Basic labs including cardiac biomarkers ordered. Portable chest x-ray virgilio out on the left with some opacities in his right lower lung. Does appear somewhat similar to prior. Basic labs essentially unremarkable including negative troponin. His proBNP is slightly elevated. CTA chest ordered. This was negative for a PE, left lung still does not look good but seems to be improving with his hydropneumothorax from prior. His right lung has a new pleural effusion and a new pneumonia in his upper lobe likely. It was after this his showed up with his previous records. 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 He also has been dealing with staph aureus pneumonia as well as potentially another bacterial infection. He is currently on IV ertapenem daily. He also recently had a pulmonary embolism which she is on Eliquis 5 mg 2 times a day. He has not been missing any doses of this. I learned all of this information after his initial work-up. I discussed with the patient given his new oxygen requirement I would prefer him to be admitted to the hospital. He says he would prefer to just get home oxygen and deal with it there especially given he is getting all of these IV therapies already and [facility] I think this is a reasonable solution. He says he has been in the hospital too much recently, and would like to spend some time at home. I discussed that he has the potential to worsen at home and he would not be in the proper location for interventions if that happens. He says he is willing to accept this risk. I believe he has capacity at this time to make this decision as he is alert and oriented and fully able to voice back to me my concerns. He was then discharged home in stable condition with strict return precautions. For the pneumonia seen in his lung, he is already on a broad coverage with ertapenem. We will add in doxycycline to cover atypicals which is essentially the only thing not currently being covered other than Pseudomonas. I told him to call his doctor at the [facility] tomorrow if he is not feeling better. Diagnostic Imaging Diagonstic Imaging: CT (CTA chest) Comments [facility] [place], [place] NAME: BRIDGETTE SNOW [facility] REC#: [id number] PT STATUS: REG ER : 1960 PHYSICIAN: ОЛЕГ REYNOLDS MD ADMIT DATE: 05/02/21/ER FS Draft Date of Exam:05/02/21 CT ANGIO CHEST W PROCEDURE: CT angiography of the chest with contrast. TECHNIQUE: Multiple contiguous axial images were obtained through the chest after uneventful bolus administration of intravenous contrast. 3D reconstructed CTA MIP acquisitions were also performed. Auto Exposure Controls were utilized during the CT exam to meet ALARA standards for radiation dose reduction. INDICATION: Hypoxia. Partial lobectomy. Tachycardia. Shortness of breath. History of lung cancer. COMPARISON: CTA chest 12/26/2020. FINDINGS: There are postoperative findings of a left upper lobectomy. No pulmonary artery filling defects. Normal caliber thoracic aorta without evidence of dissection. Normal heart size. No pericardial effusion. No mediastinal lymphadenopathy. Moderate right pleural effusion is new since the prior. Left apical hydropneumothorax occupying approximately 10-20% of the left hemithorax is smaller than on the prior exam. New dense area of consolidation in the anterior right upper lobe measuring approximately 5 cm. Hypoenhancing mass in the left adrenal gland measuring 2.5 cm similar to the prior exam. No acute findings in visualized upper abdomen. No acute osseous findings. IMPRESSION: 1. No pulmonary emboli. 2. Postoperative changes of a left upper lobectomy. A left apical hydropneumothorax occupies approximately 10-20% of the left hemithorax and has decreased in size compared to the prior exam which appears to have been recent postoperative. It is unclear if this is chronic. 3. New moderate right pleural effusion. New region of consolidation in the anterior right upper lobe could be infectious/inflammatory, less likely metastatic. Dictated on workstation # [id number] Dict: 05/02/21 1843 Trans: 05/02/21 1900 [facility] [id number] Interpreted by: SOTO MYERS MD Electronically signed by: Departure Impression Primary Impression: Acute respiratory failure Qualified Codes: J96.01 - Acute respiratory failure with hypoxia Additional Impressions: Pneumonia Qualified Codes: J18.9 - Pneumonia, unspecified organism S/P partial lobectomy of lung Disposition: HOME, SELF-CARE Condition: Stable Departure-Patient Inst. Referrals: NO,LOCAL PHYSICIAN (PCP/Family) Primary Care Physician Patient Instructions: Pneumonia, Adult (DC) Add. Discharge Instructions: You were seen in the emergency department because you are having trouble breathing. We do see that you have pneumonia on your CT. Continue the IV a ntibiotic which is called ertapenem as well as your antifungal pill. I have added in another pill called doxycycline which will cover another organism potentially in your lungs. Use the oxygen when you are feeling short of breath or if your oxygen is below 92%. I recommend you buy an oxygen sat probe at [facility] or pharmacy. If you cannot keep your oxygen off despite oxygen at home, you begin feeling worse, or you have any other concerns please either call your doctor at the [facility], or come back to the ER. Scripts Doxycycline Hyclate (Doxycycline Hyclate) 100 Mg Tablet 100 MG PO BID for 10 Days, #20 TAB 0 Refills Prov: ОЛЕГ REYNOLDS MD 05/02/21 ОЛЕГ REYNOLDS MD May 02, 2021 17:44
[2021-05-02] MEDS ORDERED: LACTATED RINGERS 1,000 ML IV SCH (17:45)
[2021-05-02 17:48] LABS: BASOPHILS % (AUTO) 0 % (0-10); EOSINOPHILS # (AUTO) 0.2 10^3/uL (0.0-0.3); EOSINOPHILS % (AUTO) 2 % (0-10); HEMATOCRIT 36 % (40-54); HEMOGLOBIN 11.4 g/dL (13.3-17.7); LYMPHOCYTES # (AUTO) 2.9 X 10^3 (1.0-4.0); LYMPHOCYTES % (AUTO) 38 % (12-44); MEAN CORPUSCULAR HEMOGLOBIN 30 pg (25-34); MEAN CORPUSCULAR HGB CONC 32 g/dL (32-36); MEAN CORPUSCULAR VOLUME 93 fL (80-99); MEAN PLATELET VOLUME 11.2 fL (9.0-12.2); MONOCYTES # (AUTO) 0.5 X 10^3 (0.0-1.0); MONOCYTES % (AUTO) 7 % (0-12); NEUTROPHILS # (AUTO) 4.1 X 10^3 (1.8-7.8); NEUTROPHILS % (AUTO) 53 % (42-75); PLATELET COUNT 316 10^3/uL (130-400); WHITE BLOOD COUNT 7.7 10^3/uL (4.3-11.0)
[2021-05-02 17:55] LABS: PROTHROMBIN TIME PATIENT 13.9 SEC (12.2-14.7)
[2021-05-02] MEDS ORDERED: CATHETER FLUSH 10 ML SYR IV PRN (18:00)
[2021-05-02] MEDS ORDERED: IOHEXOL 350 MG/ML 100 ML (OMNIPAQUE 350) VIAL IV ONE (18:00)
[2021-05-02] MEDS ORDERED: HOLD METFORMIN - RECEIVED CONTRAST 20 ML VIAL IV SCH (18:00)
[2021-05-02] MEDS ORDERED: NS 100 ML (IVPB) BAG IV ONE (18:00)
[2021-05-02 18:02] LABS: ALANINE AMINOTRANSFERASE 15 U/L (0-55); ALKALINE PHOSPHATASE 81 U/L (40-136); BILIRUBIN,TOTAL 0.3 MG/DL (0.1-1.0); BUN/CREATININE RATIO 27; CALCIUM 8.9 MG/DL (8.5-10.1); CARBON DIOXIDE 28 MMOL/L (21-32); CHLORIDE 108 MMOL/L (98-107); CREATININE SERUM 0.49 MG/DL (0.60-1.30); GFR ESTIMATED 172; GLUCOSE 169 MG/DL (70-105); POTASSIUM 3.6 MMOL/L (3.6-5.0); SODIUM 145 MMOL/L (135-145)
[2021-05-02 18:03] LABS: ALBUMIN 3.3 GM/DL (3.2-4.5); TOTAL PROTEIN 6.8 GM/DL (6.4-8.2)
--- NOTE | 2021-05-02 19:01 | Diagnostic Imaging Report ---
PROCEDURE: CT angiography of the chest with contrast. TECHNIQUE: Multiple contiguous axial images were obtained through the chest after uneventful bolus administration of intravenous contrast. 3D reconstructed CTA MIP acquisitions were also performed. Auto Exposure Controls were utilized during the CT exam to meet ALARA standards for radiation dose reduction. INDICATION: Hypoxia. Partial lobectomy. Tachycardia. Shortness of breath. History of lung cancer. COMPARISON: CTA chest 12/26/2020. FINDINGS: There are postoperative findings of a left upper lobectomy. No pulmonary artery filling defects. Normal caliber thoracic aorta without evidence of dissection. Normal heart size. No pericardial effusion. No mediastinal lymphadenopathy. Moderate right pleural effusion is new since the prior. Left apical hydropneumothorax occupying approximately 10-20% of the left hemithorax is smaller than on the prior exam. New dense area of consolidation in the anterior right upper lobe measuring approximately 5 cm. Hypoenhancing mass in the left adrenal gland measuring 2.5 cm similar to the prior exam. No acute findings in visualized upper abdomen. No acute osseous findings. IMPRESSION: 1. No pulmonary emboli. 2. Postoperative changes of a left upper lobectomy. A left apical hydropneumothorax occupies approximately 10-20% of the left hemithorax and has decreased in size compared to the prior exam which appears to have been recent postoperative. It is unclear if this is chronic. 3. New moderate right pleural effusion. New region of consolidation in the anterior right upper lobe could be infectious/inflammatory, less likely metastatic. Dictated by: Dictated on workstation # [id number]
--- NOTE | 2021-05-02 19:07 | Diagnostic Imaging Report ---
EXAM: Chest 1 view AP/PA only INDICATION: Hypoxia. History of partial lobectomy. COMPARISON: 12/26/2020. FINDINGS: Left upper lobectomy and leftward mediastinal shift should be postoperative. Bilateral pleural effusions, the left is primarily apical near the postoperative changes. Mild atelectasis or infiltrate in the mid right lung. Heart size is obscured. No acute osseous findings. IMPRESSION: 1. Postoperative findings of a left upper lobectomy and leftward mediastinal shift obscures much of the left lung. 2. Bilateral pleural effusions, the left is primarily loculated along the apex near the postoperative changes. Dictated by: Dictated on workstation # [id number]
[2021-05-02] MEDS ORDERED: DOXYCYCLINE 100 MG (VIBRAMYCIN) TABLET PO STA (19:17)
[2021-05-02] MEDS ORDERED: DOXY100T2 PO (19:17)
[2021-05-02 19:44] VITALS: BP 160/62
== END 2021-05-02 19:45 | disposition home or self-care (01) ==
LOC: EDUNIT# 17:24 → ER FS 17:29
DX: J96.00 Acute respiratory failure, unspecified whether with hypoxia or hypercapnia (principal); J18.9 Pneumonia, unspecified organism; J44.9 Chronic obstructive pulmonary disease, unspecified; I10 Essential (primary) hypertension; Z90.2 Acquired absence of lung [part of]; Z20.822 Contact with and (suspected) exposure to COVID-19
CPT/HCPCS: 36415; 71045; 71275; 80053; 83605; 83880; 84484; 85025; 85610; 85730; 87040; 87635; 87636; 87804

== ENCOUNTER 2021-05-03 14:58 | Emergency (ER) | payer OTHER ==
[~2021-05-03] VITALS: Ht 172.7 cm; Wt 79.4 kg
[2021-05-03 15:30] LABS: HEMATOCRIT 33 % (40-54); HEMOGLOBIN 10.9 g/dL (13.3-17.7); MEAN CORPUSCULAR HEMOGLOBIN 31 pg (25-34); MEAN CORPUSCULAR HGB CONC 33 g/dL (32-36); MEAN CORPUSCULAR VOLUME 93 fL (80-99); MEAN PLATELET VOLUME 11.5 fL (9.0-12.2); PLATELET COUNT 330 10^3/uL (130-400); WHITE BLOOD COUNT 8.9 10^3/uL (4.3-11.0)
[2021-05-03 15:31] LABS: BASOPHILS % (AUTO) 0 % (0-10); EOSINOPHILS # (AUTO) 0.1 10^3/uL (0.0-0.3); EOSINOPHILS % (AUTO) 1 % (0-10); LYMPHOCYTES # (AUTO) 1.4 X 10^3 (1.0-4.0); LYMPHOCYTES % (AUTO) 15 % (12-44); MONOCYTES # (AUTO) 0.4 X 10^3 (0.0-1.0); MONOCYTES % (AUTO) 5 % (0-12); NEUTROPHILS % (AUTO) 79 % (42-75)
[2021-05-03 15:50] LABS: BILIRUBIN,TOTAL 0.3 MG/DL (0.1-1.0); CREATININE SERUM 0.53 MG/DL (0.60-1.30); POTASSIUM 3.6 MMOL/L (3.6-5.0)
[2021-05-03 15:51] LABS: ALBUMIN 3.3 GM/DL (3.2-4.5); TOTAL PROTEIN 6.8 GM/DL (6.4-8.2)
--- NOTE | 2021-05-03 16:41 | ED General ---
General Chief Complaint: Respiratory Problems Stated Complaint: SOB Nursing Triage Note: PT TO ROOM FS04 VIA W/C WITH C/O SOB. PT REPORTS BEING SEEN IN THIS ED YESTERDAY AND SENT HOME ON HOME O2. PT STATES THAT HE WAS NOT ABLE TO GET HIS O2 ABOVE 90% ON 6LPM O2. PT 92%-94% ON RA. Source of Information: Patient, Old Records History of Present Illness Date Seen by Provider: May 03, 2021 Time Seen by Provider: 16:01 Initial Comments 61-year-old male presenting with complaints of shortness of breath. He was seen yesterday in the emergency department and sent home with oxygen. He reports that this morning he was unable to get his oxygen under above 90%. This was on 6 L of oxygen at home. He was not feeling any more short of breath than his baseline. He denied having any fever or chills. He is currently on antibiotics and being treated for pneumonia and pleural effusion. He had an antibiotic added on yesterday from the emergency department visit. The nurse from the home health agency had difficulty trying to get his oxygen saturation to read at home so he was referred to the emergency department. On arrival to the emergency department his oxygen saturation was 92 to 94% on room air Associated Systoms: No Chest Pain; Cough; No Diaphoresis; Fever/Chills; No Headaches; Loss of Appetite, Malaise; No Nausea/Vomiting, No Seizure; Shortness of Air (Chronic and not worse than usual); No Syncope; Weakness (Generalized) Allergies and Home Medications Allergies Coded Allergies: No Known Drug Allergies (Unverified , 12/26/20) Patient Home Medication List Home Medication List Reviewed: Yes Doxycycline Hyclate (Doxycycline Hyclate) 100 Mg Tablet, 100 MG PO BID Prescribed by: ОЛЕГ REYNOLDS on 05/02/211916 Hydrocodone Bit/Acetaminophen (HYDROcodone/APAP 5 MG/325 MG TAB) 1 Tab Tab, 1 TAB PO Q4H PRN for PAIN-MODERATE (5-7), (Reported) Entered as Reported by: OTILIO BACON on 12/26/201623 Lisinopril (Lisinopril) 20 Mg Tablet, 20 MG PO DAILY, (Reported) Entered as Reported by: OTILIO BACON on 12/26/201623 Metoprolol Tartrate (Metoprolol Tartrate) 25 Mg Tablet, 12.5 MG PO BID, (Reported) Entered as Reported by: OTILIO BACON on 12/26/201623 Omeprazole (Omeprazole) 20 Mg Capsule.dr, 20 MG PO DAILY, (Reported) Entered as Reported by: OTILIO BACON on 12/26/201623 Potassium Chloride (Potassium Chloride) 20 Meq Tablet.er, 20 MEQ PO DAILY, (Reported) Entered as Reported by: OTILIO BACON on 12/26/201623 Tiotropium Br/Olodaterol HCl (Stiolto Respimat Inhal [place]) 4 Gm Mist.inhal, 4 GM IH, (Reported) Entered as Reported by: OTILIO BACON on 12/26/201623 Review of Systems Review of Systems Constitutional: see HPI EENTM: No epistaxis, No nose congestion Respiratory: cough; No hemoptysis; short of breath; No stridor, No wheezing Cardiovascular: No chest pain Gastrointestinal: no symptoms reported Genitourinary: no symptoms reported Musculoskeletal: no symptoms reported Skin: no symptoms reported Psychiatric/Neurological: Anxiety (Worried about oxygen saturation since they could not get it over 90% at home) Past Guucwvw-Autuct-Jegpux Hx Patient Social History Tobacco Use?: Yes Tobacco type used: Cigarettes Smoking Status: Current Everyday Smoker Smokeless Tobacco Frequency: Never a User Use of E-Cig and/or Vaping dev: No Use of E-Cig and/or Vaping Jasvir: Never a User Substance use?: No Alcohol Use?: Yes Alcohol Frequency: Couple times a week Pt feels they are or have been: No Past Medical History Surgery/Hospitalization HX: L Lobectomy, L Thoracotomy, Lung Cancer, COPD Surgeries: Yes Physical Exam Vital Signs Vital Signs - First Documented 05/03/21 05/03/21 15:04 16:46 Temp 36.5 Pulse 110 Resp 17 B/P (MAP) 131/73 (92) Pulse Ox 93 O2 Delivery Room Air Capillary Refill : Less Than 3 Seconds Height, Weight, BMI Height: '" Weight: lbs. oz. kg; 26.00 BMI Method: General Appearance: No Apparent Distress, Chronically ill (Disheveled and chronically ill-appearing) HEENT: Pharynx Normal, Moist Mucous Membranes Neck: Supple Respiratory: Chest Non Tender, No Accessory Muscle Use, No Respiratory Distress, Decreased Breath Sounds Cardiovascular: Regular Rate, Rhythm, Normal Peripheral Pulses Extremity: Normal Capillary Refill Neurologic/Psychiatric: Alert, Oriented x3 Skin: Normal Color, Warm/Dry Procedures/Interventions Date of ETT Placement: Dec 26, 2020 Time of ETT Placement: 1728 Progress/Results/Core Measures Suspected Sepsis SIRS Temperature: Pulse: 110 Respiratory Rate: 17 Laboratory Tests 05/03/21 14:10: White Blood Count 8.9 Blood Pressure 131 /73 Mean: 92 Laboratory Tests 05/03/21 14:10: Creatinine 0.53L, Platelet Count 330, Total Bilirubin 0.3 Results/Orders Lab Results Laboratory Tests Test 05/03/21 14:10 Range/Units White Blood Count 8.9 4.3-11.0 10^3/uL Red Blood Count 3.50 L 4.30-5.52 10^6/uL Hemoglobin 10.9 L 13.3-17.7 g/dL Hematocrit 33 L 40-54 % Mean Corpuscular Volume 93 80-99 fL Mean Corpuscular Hemoglobin 31 25-34 pg Mean Corpuscular Hemoglobin Concent 33 32-36 g/dL Red Cell Distribution Width 21.2 H 10.0-14.5 % Platelet Count 330 130-400 10^3/uL Mean Platelet Volume 11.5 9.0-12.2 fL Neutrophils (%) (Auto) 79 H 42-75 % Lymphocytes (%) (Auto) 15 12-44 % Monocytes (%) (Auto) 5 0-12 % Eosinophils (%) (Auto) 1 0-10 % Basophils (%) (Auto) 0 0-10 % Neutrophils # (Auto) 7.0 1.8-7.8 X 10^3 Lymphocytes # (Auto) 1.4 1.0-4.0 X 10^3 Monocytes # (Auto) 0.4 0.0-1.0 X 10^3 Eosinophils # (Auto) 0.1 0.0-0.3 10^3/uL Basophils # (Auto) 0.0 0.0-0.1 10^3/uL Sodium Level 145 135-145 MMOL/L Potassium Level 3.6 3.6-5.0 MMOL/L Chloride Level 108 H 98-107 MMOL/L Carbon Dioxide Level 28 21-32 MMOL/L Anion Gap 9 5-14 MMOL/L Blood Urea Nitrogen 13 7-18 MG/DL Creatinine 0.53 L 0.60-1.30 MG/DL Estimat Glomerular Filtration Rate 157 BUN/Creatinine Ratio 25 Glucose Level 200 H 70-105 MG/DL Calcium Level 9.0 8.5-10.1 MG/DL Corrected Calcium 9.6 8.5-10.1 MG/DL Total Bilirubin 0.3 0.1-1.0 MG/DL Aspartate Amino Transf (AST/SGOT) 28 5-34 U/L Alanine Aminotransferase (ALT/SGPT) 21 0-55 U/L Alkaline Phosphatase 84 40-136 U/L Total Protein 6.8 6.4-8.2 GM/DL Albumin 3.3 3.2-4.5 GM/DL My Orders Orders - EDGARD KIRBY MD Comprehensive Metabolic Panel (05/03/21 14:10) Cbc With Automated Diff (05/03/21 14:10) Vital Signs/I&O 05/03/21 05/03/21 05/03/21 15:04 15:04 16:46 Temp 36.5 Pulse 110 70 Resp 17 16 B/P (MAP) 131/73 (92) 137/68 Pulse Ox 93 O2 Delivery Room Air Room Air Room Air Capillary Refill : Less Than 3 Seconds Blood Pressure Mean: 92 Progress Note #1: Progress Note Patient had basic labs sent to compare to yesterday. His oxygen saturation was continue to be monitored. During his emergency department stay today his O2 sat remained 92 to 94% on room air. At times while speaking to the patient his O2 sat would go up to 97-98%. Progress Note #2: Progress Note Labs appear stable and consistent with testing from yesterday. No acute significant change. His oxygen saturation again remained above 92% on room air here at the emergency department. He was reassured and advised to try using a warm blanket or something to make sure his hands were warm when they tried to check his oxygen saturation at home. Departure Impression Primary Impression: Shortness of breath Disposition: 01 HOME, SELF-CARE Condition: Stable Departure-Patient Inst. Decision time for Depature: 16:39 Referrals: NO,LOCAL PHYSICIAN (PCP/Family) Primary Care Physician Patient Instructions: Shortness of Breath, Adult ED Add. Discharge Instructions: Your oxygen saturation here has been staying up ok on room air, without any extra oxygen. If you get low oxygen readings again at home you might try to warm up your hands and see if the reading improves. If you have a cold finger or poor c irculation.the oxygen saturation may read low or not read accurately. Continue on your regular medicines and antibiotics at home. Follow up with the clinic and your regular provider for continued concerns All discharge instructions reviewed with patient and/or family. Voiced understanding. EDGARD KIRBY MD May 03, 2021 16:41
[2021-05-03 16:46] VITALS: BP 137/68
== END 2021-05-03 16:46 | disposition home or self-care (01) ==
LOC: EDUNIT# 14:58 → ER FS 14:59
DX: R06.02 Shortness of breath (principal); J44.9 Chronic obstructive pulmonary disease, unspecified; F17.210 Nicotine dependence, cigarettes, uncomplicated
CPT/HCPCS: 36415; 80053; 85025

== ENCOUNTER → 2021-05-03 | Outpatient (CLI) | payer OTHER ==
[~2021-05-03] MED LIST changes: +DOXY100T2 PO
== END ==
LOC: LAB FS 14:59
DX: J85.1 Abscess of lung with pneumonia (principal); Z20.822 Contact with and (suspected) exposure to COVID-19

== ENCOUNTER → 2021-11-05 | Outpatient (CLI) | payer OTHER ==
--- NOTE | 2021-11-05 11:46 | Diagnostic Imaging Report ---
Indication: Right shoulder pain. Time of Exam: 11:27 AM 3 views right shoulder were obtained. The glenohumeral and acromioclavicular alignment are normal. There is some acromioclavicular joint degenerative change. Acromiohumeral space is normal. No fracture or dislocation is seen. IMPRESSION: Acromioclavicular joint degenerative change. No acute bony abnormality is detected. Dictated by: Dictated on workstation # [id number]
== END ==
LOC: RAD FS 11:17
PROVIDERS: ATTEND Nurse Practitioner Adult Health
DX: M19.011 Primary osteoarthritis, right shoulder (principal)
CPT/HCPCS: 73030

== ENCOUNTER 2022-04-02 01:26 | Inpatient (IN) | payer OTHER ==
[~2022-04-02] VITALS: Ht 176 cm; Wt 88.5 kg
[~2022-04-02 01:26] MED LIST changes: -TIOT4MIS3 IH; +TIOT4MIS3 PO
--- NOTE | 2022-04-02 01:31 | ED Dyspnea ---
General Stated Complaint: SOB History of Present Illness Date Seen by Provider: Apr 02, 2022 Time Seen by Provider: 01:31 Initial Comments 62-year-old male with PMH of lung cancer in remission with left-sided lobectomy/COPD/uses CPAP at home, is brought in by EMS with complaints of shortness of breath. Patient was getting progressively short of breath over the past 3 to 4 days, and his inhalers were not improving his breathing. I did not initially have much history for the patient, until after he was intubated and I was able to speak to his . When EMS arrived on scene, patient's O2 sat was around 70%, he was given a new DuoNeb, placed on a nonrebreather at 10 L of O2, and given 125 mg IV of Solu- Medrol. With this, his oxygen saturation improved to 98%. In the ER, patient had difficulty answering questions due to SOB. Patient's oxygen saturation was above 96% at all times in the ER, however patient had increased work in breathing and was tachypneic. Switched pt to Bipap initially with minimal improvement, called RT at [facility] for assistance and adjusted bipap settings. There was some improvement but pt ultimately needed intubation due to increased work of respiration. Allergies and Home Medications Allergies Coded Allergies: No Known Drug Allergies (Unverified , 12/26/20) Patient Home Medication List Home Medication List Reviewed: Yes (Unsure of allergies due to acuity of situation without access to more info) Doxycycline Hyclate (Doxycycline Hyclate) 100 Mg Tablet, 100 MG PO BID Prescribed by: ОЛЕГ REYNOLDS on 05/02/211916 Hydrocodone Bit/Acetaminophen (HYDROcodone/APAP 5 MG/325 MG TAB) 1 Tab Tab, 1 TAB PO Q4H PRN for PAIN-MODERATE (5-7), (Reported) Entered as Reported by: OTILIO BACON on 12/26/20 162 Lisinopril (Lisinopril) 20 Mg Tablet, 20 MG PO DAILY, (Reported) Entered as Reported by: OTILIO BACON on 12/26/20 162 Metoprolol Tartrate (Metoprolol Tartrate) 25 Mg Tablet, 12.5 MG PO BID, (Reported) Entered as Reported by: OTILIO BACON on 12/26/20 162 Omeprazole (Omeprazole) 20 Mg Capsule.dr, 20 MG PO DAILY, (Reported) Entered as Reported by: OTILIO BACON on 12/26/201623 Potassium Chloride (Potassium Chloride) 20 Meq Tablet.er, 20 MEQ PO DAILY, (Reported) Entered as Reported by: OTILIO BACON on 12/26/201623 Tiotropium Br/Olodaterol HCl (Stiolto Respimat Inhal [place]) 4 Gm Mist.inhal, 4 GM IH, (Reported) Entered as Reported by: OTILIO BACON on 12/26/201623 Review of Systems Review of Systems Constitutional: see HPI EENTM: see HPI Respiratory: short of breath Cardiovascular: see HPI Gastrointestinal: no symptoms reported Genitourinary: no symptoms reported Musculoskeletal: no symptoms reported Skin: no symptoms reported Psychiatric/Neurological: No Symptoms Reported Endocrine: No Symptoms Reported Hematologic/Lymphatic: No Symptoms Reported Past Hyjrxpx-Zrribm-Qyeaml Hx Past Medical History Surgery/Hospitalization HX: L Lobectomy, L Thoracotomy, Lung Cancer, COPD Surgeries: Yes Physical Exam Vital Signs Vital Signs - First Documented 04/02/22 04/02/22 01:27 02:55 Pulse 150 Resp 36 B/P (MAP) 202/89 (126) Pulse Ox 99 O2 Delivery Non Rebreather O2 Flow Rate 100.00 Capillary Refill : Height, Weight, BMI Height: '" Weight: lbs. oz. kg; 26.00 BMI Method: General Appearance: Obese, Severe Distress HEENT: PERRL/EOMI, Other (Dry mucous membranes) Respiratory: Accessory Muscle Use, Rales, Respiratory Distress, Rhonci, Wheezing, Other (Healed surgical scar across left side of chest from lobectomy, visible pulsation seen on the left side of chest) Cardiovascular: Tachycardia, Other (Tachypneic) Gastrointestinal: Distended, Other (Multiple healed surgical scars across abdomen) Extremity: Normal Range of Motion Neurologic/Psychiatric: Alert, Oriented x3 (initially, but then became more hypoxic with increased work of breathing and unable to talk) Focused Exam Lactate Level 04/02/22 01:35: Lactic Acid Level 1.01 Lactic Acid Level Laboratory Tests Test 04/02/22 01:35 Lactic Acid Level 1.01 MMOL/L (0.50-2.00) Procedures/Interventions Date of ETT Placement: Apr 01, 2022 Time of ETT Placement: 02:12 Intubation Method: orotracheal Tube Size: 7.5 Medications: Rocuronium (and Ketamine) Positive End Tide CO2: Yes Breath Sounds after Intubation: bilateral-equal Intubation Complications: other (Initially the ETT needed to be pulled back a little bit after viewing placement on x-ray) Post Intubation Xray: Yes ETT placement confirmed Patient had large amounts of thick green mucus in the airways that was seen while intubating. Difficult to suction due to thick consistency of mucus, yet we suctioned as much as possible. ABG ordered and eICU consult obtained, and discussed with Dr. Alejandre for vent settings.EMS called for urgent transfer. They arrived while pt was being intubated. Accepting physician, Dr Posey Progress/Results/Core Measures Results/Orders Lab Results Laboratory Tests Test 04/02/22 01:35 04/02/22 01:56 04/02/22 02:05 Range/Units White Blood Count 18.7 H 4.3-11.0 10^3/uL Red Blood Count 4.30 4.30-5.52 10^6/uL Hemoglobin 15.8 13.3-17.7 g/dL Hematocrit 47 40-54 % Mean Corpuscular Volume 108 H 80-99 fL Mean Corpuscular Hemoglobin 37 H 25-34 pg Mean Corpuscular Hemoglobin Concent 34 32-36 g/dL Red Cell Distribution Width 15.1 H 10.0-14.5 % Platelet Count 228 130-400 10^3/uL Mean Platelet Volume 11.0 9.0-12.2 fL Immature Granulocyte % (Auto) 1 % Neutrophils (%) (Auto) 56 42-75 % Lymphocytes (%) (Auto) 32 12-44 % Monocytes (%) (Auto) 11 0-12 % Eosinophils (%) (Auto) 0 0-10 % Basophils (%) (Auto) 0 0-10 % Neutrophils # (Auto) 10.5 H 1.8-7.8 10^3/uL Lymphocytes # (Auto) 5.9 H 1.0-4.0 10^3/uL Monocytes # (Auto) 2.1 H 0.0-1.0 10^3/uL Eosinophils # (Auto) 0.0 0.0-0.3 10^3/uL Basophils # (Auto) 0.1 0.0-0.1 10^3/uL Immature Granulocyte # (Auto) 0.1 0.0-0.1 10^3/uL Neutrophils % (Manual) 51 % Lymphocytes % (Manual) 41 % Monocytes % (Manual) 8 % Prothrombin Time 14.4 12.2-14.7 SEC INR Comment 1.1 0.8-1.4 Activated Partial Thromboplast Time 26 24-35 SEC D-Dimer 1.02 H 0.00-0.49 UG/ML Sodium Level 143 135-145 MMOL/L Potassium Level 4.1 3.6-5.0 MMOL/L Chloride Level 99 98-107 MMOL/L Carbon Dioxide Level 20 L 21-32 MMOL/L Anion Gap 24 H 5-14 MMOL/L Blood Urea Nitrogen 19 H 7-18 MG/DL Creatinine 0.59 L 0.60-1.30 MG/DL Estimat Glomerular Filtration Rate 108 BUN/Creatinine Ratio 32 Glucose Level 172 H 70-105 MG/DL Lactic Acid Level 1.01 0.50-2.00 MMOL/L Calcium Level 9.3 8.5-10.1 MG/DL Corrected Calcium 9.1 8.5-10.1 MG/DL Total Bilirubin 0.6 0.1-1.0 MG/DL Aspartate Amino Transf (AST/SGOT) 13 5-34 U/L Alanine Aminotransferase (ALT/SGPT) 14 0-55 U/L Alkaline Phosphatase 85 40-136 U/L Troponin I < 0.30 <0.30 NG/ML Pro-B-Type Natriuretic Peptide 968.6 H <125.0 PG/ML Total Protein 8.2 6.4-8.2 GM/DL Albumin 4.2 3.2-4.5 GM/DL Urine Color YELLOW Urine Clarity CLEAR Urine pH 6.0 5-9 Urine Specific [place] >=1.030 1.016-1.022 Urine Protein 3+ H NEGATIVE Urine Glucose (UA) 3+ H NEGATIVE Urine Ketones 3+ H NEGATIVE Urine Nitrite NEGATIVE NEGATIVE Urine Bilirubin 1+ H NEGATIVE Urine Urobilinogen 0.2 < = 1.0 MG/DL Urine Leukocyte Esterase NEGATIVE NEGATIVE Urine RBC (Auto) 2+ H NEGATIVE Urine RBC 25-50 H /HPF Urine WBC NONE /HPF Urine Squamous Epithelial Cells 2-5 /HPF Urine Crystals NONE /LPF Urine Bacteria NEGATIVE /HPF Urine Casts PRESENT /LPF Urine Granular Casts 2-5 H /LPF Urine Mucus NEGATIVE /LPF Urine Culture Indicated NO Blood Gas Puncture Site RIGHT WRIST Blood Gas Patient Temperature 36.6 Arterial Blood pH 7.07 *L 7.37-7.43 Arterial Blood Partial Pressure CO2 74 *H 35-45 MMHG Arterial Blood Partial Pressure O2 258 H 79-93 MMHG Arterial Blood HCO3 21 L 23-27 MMOL/L Arterial Blood Total CO2 23.7 21.0-31.0 MMOL/L Arterial Blood Oxygen Saturation 100 94-100 % Arterial Blood Base Excess -9.7 L -2.5-2.5 MMOL/L Jasvir Test NEGATIVE Blood Gas Ventilator Setting NO Blood Gas Inspired Oxygen 10 My Orders Orders - HUAN CLARK MD Cbc With Automated Diff (04/02/22:35) Comprehensive Metabolic Panel (04/02/22:35) Fibrin Degradation Products (04/02/22:35) Lactic Acid Analyzer (04/02/22:35) Protime With Inr (04/02/22:35) Partial Thromboplastin Time (04/02/22:35) Ua Culture If Indicated (04/02/22 01:35) Probnp Fs (04/02/22 01:35) Troponin I Fs (04/02/22 01:35) Albuterol/Ipra Inhalation Soln (Duoneb I (04/02/22:45) Svn Small Volume Nebulizer (04/02/22 01:36) Arterial Blood Gas (04/02/22 01:36) Procalcitonin (Pct) (04/02/22 01:35) Ed Iv/Invasive Line Start (04/02/22 01:43) Manual Differential (04/02/22:35) Ekg Tracing (04/02/22 01:38) O2 (04/02/22 01:38) Monitor-Rhythm Ecg Trace Only (04/02/22:38) Nitroglycerin 0.4 Mg Btl 25's (Nitrostat (04/02/22 01:45) Ed Iv/Invasive Line Start (04/02/22 01:38) Troponin I Fs (04/02/22 01:38) Nitroglycerin 0.4 Mg Btl 25's (Nitrostat (04/02/22 01:45) Furosemide Injection (Lasix Injection) (04/02/22 01:45) Diltiazem Injection (Cardizem Injection) (04/02/22 02:00) Diltiazem Drip Pre-Mix (Cardizem Drip Pr (04/02/22 02:00) Nitroglycerin 0.4 Mg Btl 25's (Nitrostat (04/02/22 01:44) Chest 1 View Ap/Pa Only (04/02/22 02:17) Ns Iv 1000 Ml (Sodium Chloride 0.9%) (04/02/22 02:30) Ed Iv/Invasive Line Start (04/02/22 02:18) Ns Iv 1000 Ml (Sodium Chloride 0.9%) (04/02/22 02:15) Cefepime Injection (Maxipime Injection) (04/02/22 02:45) Cefepime Injection (Maxipime Injection) (04/02/22 02:38) Ns (Ivpb) (Sodium Chloride 0.9% Ivpb Bag (04/02/22 02:40) Hernandez Cath (04/02/22 02:57) Medications Given in ED Current Medications Medications Dose Ordered Sig/Sandi Route Start Time Stop Time Status Last Admin Dose Admin Albuterol/ Ipratropium 3 ml ONCE ONCE INH 04/02/22 01:45 04/02/22 01:46 DC 04/02/22 01:59 3 ML Cefepime HCl 1000 mg/Sodium Chloride 50 ml @ 100 mls/hr ONCE ONCE IV 04/02/22 02:45 04/02/22 03:14 DC 04/02/22 02:45 100 MLS/HR Diltiazem HCl 10 mg ONCE ONCE IVP 04/02/22 02:00 04/02/22 02:01 DC 04/02/22 01:52 10 MG Furosemide 40 mg ONCE ONCE IVP 04/02/22 01:45 04/02/22 01:47 DC 04/02/22 01:51 40 MG Nitroglycerin 0.4 mg ONCE ONCE SL 04/02/22 01:45 04/02/22 01:46 DC 04/02/22 01:51 0.4 MG Vital Signs/I&O 04/02/22 04/02/22 04/02/22 04/02/22 01:27 01:52 01:58 02:55 Pulse 150 151 147 142 Resp 36 14 B/P (MAP) 202/89 (126) 196/91 196/91 165/66 Pulse Ox 99 96 O2 Delivery Non Rebreather Mechanical Ventilator O2 Flow Rate 100.00 Progress Progress Note : Progress Note 1. ACUTE RESPIRATORY DISTRESS: Pt is a FULL CODE - EMS gave pt solumedrol 125mg iv, and duo neb en route to ER with improvement from 70% saturation to 98% - In ER, initially did not have much information on pt, and was not able to speak to pt's until after intubation, so treated for most possible causes of respiratory distress: Gave 2nd Duo Neb, Lasix 40mg iv, sublingual nitrate 0.4mg, began cardizem drip due to flutter and A-fib . Switched to BiPAP. Later stopped the cardizem drip when BP began to drop during intubation, and started iv fluids. BP normalized with this measure.Pt was given Ketamine 110 mg and Tom 100mg and then intubated with [employer] and 7.5 ETT, with final 27 at the lip after pulling tube back a little to obtain adequate chest rise. End tidal Co2 good, with O2 sat at 97%. Tachypnea improved. - Dr Posey accepted for admission to ICU, E-ICU aware and consulted for vent settings. Discussed with of pt, and she is agreeable to plan. - VENT settings recommended by ICU: Assist control: TV: 500/ Rate 22/ PEEP 8/ FiO2: 60. - Cefepime iv started at time of transfer - Lab results seen as pt was being transferred out of the ER Departure Communication (Admissions) Time/Spoke to Admitting Phy: 02:[address] Llamas for admission to ICU Impression Primary Impression: Acute respiratory distress Disposition: 30 STILL A PATIENT Condition: Critical Admissions Decision to Admit Reason: Admit from ER (General) Decision to Admit/Date: Apr 02, 2022 Time/Decision to Admit Time: 01:35 Transfer Method of Transfer: EMS Departure-Patient Inst. Referrals: NO,LOCAL PHYSICIAN (PCP) Primary Care Physician HUAN CLARK MD Apr 02, 2022 01:31
[2022-04-02 01:44] LABS: BASOPHILS # (AUTO) 0.1 10^3/uL (0.0-0.1); BASOPHILS % (AUTO) 0 % (0-10); EOSINOPHILS % (AUTO) 0 % (0-10); HEMATOCRIT 47 % (40-54); HEMOGLOBIN 15.8 g/dL (13.3-17.7); LYMPHOCYTES # (AUTO) 5.9 10^3/uL (1.0-4.0); LYMPHOCYTES % (AUTO) 32 % (12-44); MEAN CORPUSCULAR HEMOGLOBIN 37 pg (25-34); MEAN CORPUSCULAR HGB CONC 34 g/dL (32-36); MEAN CORPUSCULAR VOLUME 108 fL (80-99); MONOCYTES # (AUTO) 2.1 10^3/uL (0.0-1.0); MONOCYTES % (AUTO) 11 % (0-12); NEUTROPHILS # (AUTO) 10.5 10^3/uL (1.8-7.8); NEUTROPHILS % (AUTO) 56 % (42-75); PLATELET COUNT 228 10^3/uL (130-400); WHITE BLOOD COUNT 18.7 10^3/uL (4.3-11.0)
[2022-04-02] MEDS ORDERED: NITROGLYCERIN 0.4 MG SL TABS BTL 25'S SL ONE ×2 (01:44→01:45)
[2022-04-02] MEDS ORDERED: NITROGLYCERIN 0.4 MG SL TABS BTL 25'S SL PRN (01:45)
[2022-04-02] MEDS ORDERED: FUROSEMIDE 40 MG/4 ML INJ (LASIX) IVP ONE (01:45)
[2022-04-02] MEDS ORDERED: RT-ALBUTEROL/IPRATROPIUM 3 ML (DUONEB) VIAL INH ONE (01:45)
[2022-04-02] MEDS ORDERED: dilTIAZem DRIP PRE-MIX 125 ML IV SCH (02:00)
[2022-04-02 02:04] LABS: INR 1.1 (0.8-1.4); PROTHROMBIN TIME PATIENT 14.4 SEC (12.2-14.7)
[2022-04-02 02:09] LABS: FIBRIN DEGRADATION PRODUCTS 1.02 UG/ML (0.00-0.49)
[2022-04-02 02:10] LABS: ABG BASE EXCESS -9.7 MMOL/L (-2.5-2.5); ABG OXYGEN SATURATION 100 % (94-100); ABG PH 7.07 (7.37-7.43); ABG PO2 258 MMHG (79-93); ABG TCO2 23.7 MMOL/L (21.0-31.0); ALLENS TEST NEGATIVE; INSPIRED O2 10; VENTILATOR NO
[2022-04-02 02:11] LABS: ABG PCO2 74 MMHG (35-45)
[2022-04-02 02:12] LABS: ALANINE AMINOTRANSFERASE 14 U/L (0-55); ALBUMIN 4.2 GM/DL (3.2-4.5); ALKALINE PHOSPHATASE 85 U/L (40-136); BILIRUBIN,TOTAL 0.6 MG/DL (0.1-1.0); BUN/CREATININE RATIO 32; CALCIUM 9.3 MG/DL (8.5-10.1); CARBON DIOXIDE 20 MMOL/L (21-32); CHLORIDE 99 MMOL/L (98-107); CREATININE SERUM 0.59 MG/DL (0.60-1.30); GFR ESTIMATED 108; GLUCOSE 172 MG/DL (70-105); POTASSIUM 4.1 MMOL/L (3.6-5.0); SODIUM 143 MMOL/L (135-145); TOTAL PROTEIN 8.2 GM/DL (6.4-8.2)
[2022-04-02] MEDS ORDERED: NS IV 1000 ML 1,000 ML ONE (02:15)
[2022-04-02 02:19] LABS: CLARITY,URINE CLEAR; COLOR,URINE YELLOW; GLUCOSE, URINE (UA) 3+ (NEGATIVE); KETONES,URINE 3+ (NEGATIVE); LEUKOCYTE ESTERASE ,URINE NEGATIVE (NEGATIVE); NITRITE,URINE NEGATIVE (NEGATIVE); PROTEIN,URINE 3+ (NEGATIVE)
[2022-04-02 02:23] LABS: BACTERIA,URINE NEGATIVE /HPF; RBC,URINE 25-50 /HPF
[2022-04-02 02:24] LABS: BILIRUBIN,URINE 1+ (NEGATIVE)
[2022-04-02 02:28] LABS: LYMPHOCYTES % (MANUAL) 41 %; MONOCYTES % (MANUAL) 8 %; NEUTROPHILS % (MANUAL) 51 %
[2022-04-02] MEDS ORDERED: NS IV 1000 ML 1,000 ML IV SCH (02:30)
[2022-04-02] MEDS ORDERED: CEFEPIME 1 GM/10 ML (MAXIPIME) VIAL ONE (02:38)
[2022-04-02] MEDS ORDERED: NS (IVPB) 50 ML ONE (02:40)
[2022-04-02] MEDS ORDERED: RT-HYPERTONIC SALINE 3% 4 ML NEB INH STA (02:41)
[2022-04-02] MEDS ORDERED: CEFEPIME INJECTION 1,000 MG in NS (IVPB) 50 ML IV ONE (02:45)
[2022-04-02] MEDS ORDERED: RT-ALBUTEROL/IPRATROPIUM 3 ML (DUONEB) VIAL INH PRN (02:45)
[2022-04-02 03:03] LABS: PATIENT TEMP 36.6
[2022-04-02] MEDS: PROPOFOL DRIP (ICU) 100 ML IV SCH ×4 (04:26→20:12)
--- NOTE | 2022-04-02 04:29 | Tele-ICU Progress Note ---
Progress Note 62M admitted from [facility] ED intubated for ARF. Has h/o lung ca s/p partial lobectomy 10/15/2020 at [facility], total lobectomy 12/09/2020 at [facility], complicated by infection and hemothorax, and cardiac arrest, COPD, HTN. 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 Course was further complicated by PE, treated with eliquis. Had 3-4 days progressive SOB. On EMS arrival, O2 was in the 70s. Given duoneb, NRB with 10L O2 (per note, unknown if there was an error in NRB administration or a typo in the note), solumedrol 125 mg with improvement to 98%. In ED, patient was dyspneic to the point he was having difficulty speaking. Despite maintaining SpO2 had significant increase in work of breathing and tachypna. BiPap 18/8/60% was attempted with poor results. Continued to have increasing work of breathing requiring intubation. I was called from [facility] ED prior to transfer with pH 7.07, CO2 74/O2 254/ bicarb 21.4 on vent with IPAP 18, EPAP 8, rate 14, FiO2 60%. Recommended change to AC 500/22/+8/100% (EMS travel vent only has 0 and 100 as options). - acute respiratory failure: secondary to pneumonia vs COPD exacerbation. Initially left lung with extensive airspace opacities assumed to be pneumonia, with improvement in aeration after intubation. However, now that more history is obtained, difficult to tell with lobectomy. Baseline appearance unknown. Pneumonia vs mucus plugging vs severe bronchospasm. STAT repeat CXR and ABG ordered on arrival to ICU. Will adjust vent accordingly. Scheduled and PRN nebs, solumedrol. Noted to have copious thick green secretions after intubation. Will add aggressive pulmonary toilet. Trial of hypertonic saline neb, if effective will schedule. - pna: sending sputum culture, procalcitonin. As above, unclear if radiographic changes are secondary to pneumonia. Cover with broad spectrums - cefepime, vanco and doxy. Had resistant organisms a year ago requiring ertapenem, will have a low threshhold to switch abx if it appears he is failing treatment. - sedation: during prior intubation patient was very difficult to keep sedated, requiring multiple agents including versed gtt. Currently on propofol, arousable but calm and cooperative. Gagging on tube. Will add fentanyl. Diagnosis: acute respiratory failure, pneumonia, COPD exacerbation, left lung lobectomy ___ patient provided consent for the telehealth visit __X_patient is not able to provide consent for the telehealth visit, service provided to critically care patient using implied consent doctrine. A total of 70 minutes of critical care time was devoted to this patient, including reviewing this patient's available data, including medical history, events of note and test results. I have overseen the activities of other members of the care team under my direct supervision during events of the note . This was required to treat and/or prevent further deterioration of critical care conditions ( as above ). Service provided to a patient admitted to ICU bed via interactive E-CARE system with real-time audio and video telecommunications from [facility]- ICU hub located in [place], [place] Focused Exam Lactate Level 04/02/22 01:35: Lactic Acid Level 1.01 Height, Weight, BMI Height: '" Weight: lbs. oz. kg; 28.47 BMI Method: Lactic Acid Level Laboratory Tests Test 04/02/22 01:35 Lactic Acid Level 1.01 MMOL/L (0.50-2.00) AFSHIN HOPKINS MD Apr 02, 2022 04:29
[2022-04-02] MEDS ORDERED: AMIODARONE INJECTION 450 MG in NORMAL SALINE 250 ML IV SCH (04:30)
[2022-04-02] MEDS ORDERED: AMIODARONE FOR BOLUS 150 MG in NS (IVPB) 100 ML IV SCH (04:30)
[2022-04-02] MEDS: methylPREDNISolone 40 MG/ML (Solu-MEDROL) VIAL IV SCH ×4 (04:36→23:04)
[2022-04-02] MEDS: DOXYCYCLINE INJECTION 100 MG in NS (IVPB) 100 ML IV SCH ×2 (04:37→16:19)
[2022-04-02] MEDS: fentaNYL DRIP PRE-MIX 250 ML IV SCH ×2 (05:01→20:12)
[2022-04-02 05:03] LABS: ABG BASE EXCESS -9.1 MMOL/L (-2.5-2.5); ABG OXYGEN SATURATION 96 % (94-100); ABG PCO2 58 MMHG (35-45); ABG PO2 92 MMHG (79-93); ABG TCO2 20.5 MMOL/L (21.0-31.0)
[2022-04-02 05:09] LABS: ABG PH 7.13 (7.37-7.43); ALLENS TEST YES-POS; PATIENT TEMP 36.4; VENTILATOR YES
[2022-04-02 06:41] LABS: CALCIUM 8.4 MG/DL (8.5-10.1); CREATININE SERUM 1.02 MG/DL (0.60-1.30); MAGNESIUM 1.7 MG/DL (1.6-2.4); POTASSIUM 4.7 MMOL/L (3.6-5.0)
--- NOTE | 2022-04-02 06:52 | Diagnostic Imaging Report ---
CHEST 1 VIEW, AP/PA ONLY Indication: Respiratory distress Comparison: 04/02/2022 Findings: ET tube has tip just above the jase. Consider approximately 2 to 3 cm of retraction. Stable left perihilar opacities with architectural distortion. Patchy consolidation the right lung base have worsened. Stable blunting of the left lateral costophrenic angle. No pneumothorax. Impression: 1. Low-lying ET tube with tip near the jase. Consider approximately 2 to 3 cm of retraction. 2. Right basilar opacities have mildly worsened are likely due to atelectasis. Dictated by: Dictated on workstation # [id number]
[2022-04-02 06:58] LABS: BASOPHILS % (AUTO) 0 % (0-10); EOSINOPHILS % (AUTO) 0 % (0-10); HEMATOCRIT 41 % (40-54); HEMOGLOBIN 13.7 g/dL (13.3-17.7); LYMPHOCYTES # (AUTO) 0.3 10^3/uL (1.0-4.0); LYMPHOCYTES % (AUTO) 2 % (12-44); MEAN CORPUSCULAR HEMOGLOBIN 37 pg (25-34); MEAN CORPUSCULAR HGB CONC 33 g/dL (32-36); MEAN CORPUSCULAR VOLUME 111 fL (80-99); MEAN PLATELET VOLUME 11.3 fL (9.0-12.2); MONOCYTES # (AUTO) 0.9 10^3/uL (0.0-1.0); MONOCYTES % (AUTO) 8 % (0-12); NEUTROPHILS # (AUTO) 10.9 10^3/uL (1.8-7.8); NEUTROPHILS % (AUTO) 89 % (42-75); PLATELET COUNT 198 10^3/uL (130-400); WHITE BLOOD COUNT 12.2 10^3/uL (4.3-11.0)
[2022-04-02 07:10] VITALS: BP 98/62
--- NOTE | 2022-04-02 07:24 | Diagnostic Imaging Report ---
CHEST 1 VIEW AP/PA ONLY Indication: Intubation Comparison: 05/02/2021 Findings: ET tube has tip approximately 1 cm above the jase. Consider 1 to 2 cm of retraction. Left lateral costophrenic angle is excluded from the field of view. Chronic nodular consolidation in the left suprahilar region. An anastomotic staple line in the left upper lung is stable as well. Improved but persistent pleural thickening and/or effusion on the left. Grossly stable cardiac silhouette. Right lung is clear. Impression: 1. Low-lying ET tube. Consider 1 to 2 cm of retraction. Dictated by: Dictated on workstation # [id number]
[2022-04-02] MEDS ORDERED: NS IV 500 ML 500 ML IV PRN (08:00)
[2022-04-02] MEDS: CEFEPIME INJECTION 1,000 MG in NS (IVPB) 50 ML IV SCH ×3 (08:53→23:04)
[2022-04-02] MEDS: ENOXAPARIN 40 MG/0.4 ML (LOVENOX) SYR SC SCH (08:53)
[2022-04-02] MEDS: PANTOPRAZOLE 40 MG (PROTONIX) VIAL IV SCH (08:54)
[2022-04-02] MEDS: MAGNESIUM 1 GM/100 ML IVPB 100 ML IV SCH ×2 (08:57→08:58)
--- NOTE | 2022-04-02 09:17 | History & Physical-Hospitalist ---
History of Present Illness HPI/Chief Complaint Patient is 62-year-old male who presented to the emergency department and extremis from respiratory distress and was emergently intubated. He is currently intubated and sedated and so all history is obtained from the records. Reportedly he had been feeling short of breath for the past 3 to 4 days and was taking his inhalers without much improvement. EMS was summoned and found his oxygen saturation to be around 70%. He was placed on 10 L of oxygen and giving a DuoNeb via EMS which did initially improve his hypoxia. Unfortunately he had profound work of breathing and BiPAP was attempted but he ended up being intubated shortly after arrival. During intubation they were able to suction out quite a bit of green sputum which has been sent for culture. He was transferred here for further management. There is no family at bedside. Source: patient Date Seen 04/02/22 Time Seen by a Provider: 08:20 Attending Physician No,Local Physician PCP Admitting Physician: Delta Marinelli MD Attending Physician: Delta Marinelli MD Referring Physician Date of Admission Apr 02, 2022 at 03:31 Home Medications & Allergies Home Medications Reviewed patient Home Medication Reconciliation performed by pharmacy medication reconciliations site technician and/or nursing. Patients Allergies have been reviewed. Allergies Allergies Coded Allergies No Known Drug Allergies (Unverified12/26/20) Past Bkebumy-Wbourb-Jpnrht Hx Patient Social History Marrital Status: Current Status Advance Directives: No Primary Language: Yakut Preferred Spoken Language: Yakut Past Medical History Surgeries: Lobectomy COPD Lung Family Medical History Reviewed Nursing Family Hx Review of Systems ROS-Unable to Obtain: intubated and sedated Constitutional: see HPI Physical Exam Physical Exam Vital Signs Vital Signs - First Documented 04/02/22 04/02/22 04/02/22 04/02/22 01:27 02:55 03:32 07:56 Temp 36.8 Pulse 150 Resp 36 B/P (MAP) 202/89 (126) Pulse Ox 99 O2 Delivery Non Rebreather O2 Flow Rate 100.00 FiO2 60 Capillary Refill : Less Than 3 Seconds Height, Weight, BMI Height: '" Weight: lbs. oz. kg; 28.47 BMI Method: General Appearance: Other (intubated and sedated) HEENT: PERRL/EOMI, Moist Mucous Membranes; No Scleral Icterus (L), No Scleral Icterus (R) Neck: Normal Inspection, Supple Respiratory: Lungs Clear, Other (on vent) Cardiovascular: Regular Rate, Rhythm, No Murmur Gastrointestinal: Normal Bowel Sounds, Non Tender, Soft Genital/Rectal: Other (porter) Extremity: Normal Capillary Refill, No Calf Tenderness, No Pedal Edema, Other (missing second digit on rightfoot) Neurologic/Psychiatric: Alert (opens eyes when spoken to but quickly back asleep- sedate and comfortable appearing) Skin: Normal Color, Warm/Dry Results Results/Procedures Labs Laboratory Tests 04/02/22 01:35 04/02/22 05:48 04/02/22 06:10 04/02/22 20:00 04/03/22 03:41 Patient resulted labs reviewed. Imaging: Reviewed Imaging Report Imaging [facility] [place], [place] NAME: BRIDGETTE SNOW MED REC#: [id number] PT STATUS: ADM IN : 1960 PHYSICIAN: HUAN CLARK MD ADMIT DATE: 04/02/22/ICU Draft Date of Exam:04/02/22 CHEST 1 VIEW AP/PA ONLY CHEST 1 VIEW AP/PA ONLY Indication: Intubation Comparison: 05/02/2021 Findings: ET tube has tip approximately 1 cm above the jase. Consider 1 to 2 cm of retraction. Left lateral costophrenic angle is excluded from the field of view. Chronic nodular consolidation in the left suprahilar region. An anastomotic staple line in the left upper lung is stable as well. Improved but persistent pleural thickening and/or effusion on the left. Grossly stable cardiac silhouette. Right lung is clear. Impression: 1. Low-lying ET tube. Consider 1 to 2 cm of retraction. Dictated on workstation # [id number] Dict: 04/02/2210 Trans: 04/02/22 0723 [facility] [id number] Interpreted by: LENA MERCADO MD Electronically signed by: Assessment/Plan Admission Diagnosis Acute Respiratory Failure Admission Status: Inpatient Order (span 2 midnights) Reason for Inpatient Admission: see below Assessment and Plan Acute Respiratory Failure COPD Exacerbation with lower respiratory tract infection Sepsis due to pneumonia- POA s/p lobectomy due to lung cancer Continue steroids Continue IV abx Maintained on vent TeleICU consulted, appreciate recs GI ppx: Protonix Diagnosis/Problems Diagnosis/Problems (1) Acute respiratory failure Status: Acute Qualifiers: Respiratory failure complication: hypercapnia Qualified Codes: J96.02 - Acute respiratory failure with hypercapnia DELTA MARINELLI MD Apr 02, 2022 09:17
--- NOTE | 2022-04-02 09:17 | Tele-ICU Progress Note ---
Subjective Date Seen by a Provider: Apr 02, 2022 Time Seen by a Provider: 09:10 Subjective/Events-last exam This virtual visit was conducted using real time audio/video. Remains on full vent support, On AC 22, Vt 500 FiO2 60%, PEEP, not fighting vent On sedation IV Propofol @ 40 and IV Fentanyl @ 50 Not much secretions, RASS -1 to -2 Remains on IV doxycycline, Cefepime ETT too low and will be pulled back, will order repeat CXR RT reports pulm edema type fluid in ET, will give one dose IV Lasix Sepsis Event Evaluation Height, Weight, BMI Height: '" Weight: lbs. oz. kg; 28.47 BMI Method: Focused Exam Lactate Level 04/02/22 01:35: Lactic Acid Level 1.01 04/02/22 06:10: Lactic Acid Level 0.70 Lactic Acid Level Laboratory Tests Test 04/02/22 06:10 Lactic Acid Level 0.70 MMOL/L (0.50-2.00) Exam Exam Patient acknowledged, consented, and participated in this virtual visit which was conducted using real time audio/video Vital Signs Date Time Temp Pulse Resp B/P (MAP) Pulse Ox O2 Delivery O2 Flow Rate FiO2 04/02/22 08:00 112 117/64 (81) 98 Mechanical Ventilator 60.00 04/02/22 07:56 36.8 04/02/22 07:10 103 28 99 60 04/02/22 07:00 102 104/59 (74) 98 Mechanical Ventilator 60.00 04/02/22 07:00 112 04/02/22 06:00 110 30 106/57 (73) 98 Mechanical Ventilator 60.00 04/02/22 05:01 125 116/62 04/02/22 04:45 126 22 111/59 (76) 97 Mechanical Ventilator 60.00 04/02/22 04:15 130 22 117/59 (78) 97 Mechanical Ventilator 60.00 04/02/22 04:00 99 Mechanical Ventilator 60 04/02/22 04:00 131 22 109/58 (75) 97 Mechanical Ventilator 60.00 04/02/22 03:45 142 16 134/66 (88) 98 Mechanical Ventilator 60.00 04/02/22 03:37 142 04/02/22 03:35 138 22 60 04/02/22 03:32 99 Mechanical Ventilator 60 04/02/22 03:30 144 16 155/69 (97) 98 Mechanical Ventilator 60.00 04/02/22 02:55 142 14 165/66 96 Mechanical Ventilator 100.00 04/02/22 01:58 147 196/91 04/02/22 01:52 151 196/91 04/02/22 01:27 150 36 202/89 (126) 99 Non Rebreather I & O 04/02/22 07:00 Intake Total 1153 ml Output Total 925 ml Balance 228 ml Height & Weight Height: '" Weight: lbs. oz. kg; 28.47 BMI Method: General Appearance: Obese, Severe Distress HEENT: PERRL/EOMI, Other (Dry mucous membranes) Respiratory: Accessory Muscle Use, Crackles, Rales, Respiratory Distress, Rhonci, Wheezing, Other (Healed surgical scar across left side of chest from lobectomy, visible pulsation seen on the left side of chest) Cardiovascular: Tachycardia, Other (Tachypneic) Capillary Refill: Less Than 3 Seconds Gastrointestinal: normal bowel sounds, non tender, soft Extremity: Normal Range of Motion, No Pedal Edema Neurologic/Psychiatric: Alert, Oriented x3 (initially, but then became more hypoxic with increased work of breathing and unable to talk) Results Lab Laboratory Tests 04/02/22 01:35 04/02/22 05:48 04/02/22 06:10 Assessment/Plan Assessment/Plan Needs to remain on vent today, will continue on full vent support and sedation, consider for SBT in am Critical Care: Ventilator Management Time spent with patient (mins): 30 TIESHA PETTY MD Apr 02, 2022 09:17
[2022-04-02 09:30] VITALS: BP 151/62
[2022-04-02 10:00] VITALS: BP 115/58
[2022-04-02] MEDS ORDERED: VANCOMYCIN 1,750 MG/NS 500 ML IVPB IV NR ×2 (10:00)
[2022-04-02] MEDS: RT-ALBUTEROL/IPRATROPIUM 3 ML (DUONEB) VIAL INH SCH ×3 (10:00→19:55)
--- NOTE | 2022-04-02 10:10 | Diagnostic Imaging Report ---
INDICATION: Pulmonary edema. ET tube pulled back 2 cm. EXAMINATION: Chest 04/02/2022 COMPARISON: 04/02/2022 at 4:59 a.m. FINDINGS: ET tube has been pulled back since the recent examination. The tip now lies approximately 2 cm from the jase. Enteric tube is noted coursing beneath the diaphragm. Postoperative changes in the left lung apex again noted. The lungs and remaining chest stable from recent imaging. IMPRESSION: 1. Interval retraction of the ET tube as above with remaining chest stable. Dictated by: Dictated on workstation # [id number]
[2022-04-02] MEDS ORDERED: FUROSEMIDE 40 MG/4 ML INJ (LASIX) IVP NR (10:15)
[2022-04-02 11:00] LABS: BILIRUBIN,URINE NEGATIVE (NEGATIVE); CLARITY,URINE CLEAR; COLOR,URINE YELLOW; GLUCOSE, URINE (UA) 3+ (NEGATIVE); KETONES,URINE 2+ (NEGATIVE); LEUKOCYTE ESTERASE ,URINE NEGATIVE (NEGATIVE); NITRITE,URINE NEGATIVE (NEGATIVE); PH,URINE 5.5 (5-9); PROTEIN,URINE 2+ (NEGATIVE)
[2022-04-02 11:17] LABS: BACTERIA,URINE NEGATIVE /HPF; RBC,URINE 0-2 /HPF; SQUAMOUS EPITHELIAL CELL,UR 0-2 /HPF; WBC,URINE RARE /HPF
[2022-04-02 11:44] LABS: ABG BASE EXCESS -9.5 MMOL/L (-2.5-2.5); ABG OXYGEN SATURATION 98 % (94-100); ABG PCO2 45 MMHG (35-45); ABG PO2 157 MMHG (79-93); ABG TCO2 18.6 MMOL/L (21.0-31.0)
[2022-04-02 11:47] LABS: ALLENS TEST YES-POS; PATIENT TEMP 36.4; VENTILATOR YES
[2022-04-02] MEDS: inSUlin ASPART (NovoLOG) 1 UNIT/0.01 ML (CHARGE PER UNIT) SQ SCH ×2 (12:28→18:30)
[2022-04-02 14:51] VITALS: BP 120/62
[2022-04-02 19:55] VITALS: BP 103/54
[2022-04-02 20:26] LABS: CALCIUM 8.9 MG/DL (8.5-10.1); CREATININE SERUM 1.15 MG/DL (0.60-1.30); MAGNESIUM 2.4 MG/DL (1.6-2.4); POTASSIUM 4.4 MMOL/L (3.6-5.0)
[2022-04-02 21:26] LABS: ABG BASE EXCESS -4.4 MMOL/L (-2.5-2.5); ABG OXYGEN SATURATION 93 % (94-100); ABG PCO2 48 MMHG (35-45); ABG PO2 67 MMHG (79-93); ABG TCO2 22.9 MMOL/L (21.0-31.0)
[2022-04-02 21:27] LABS: ABG PH 7.27 (7.37-7.43)
[2022-04-02 21:28] LABS: ALLENS TEST YES-POS; PATIENT TEMP 36.7; VENTILATOR YES
[2022-04-02] MEDS: VANCOMYCIN 1250 MG/NS 250 ML IVPB IV SCH ×2 (23:04)
[2022-04-03] MEDS: inSUlin ASPART (NovoLOG) 1 UNIT/0.01 ML (CHARGE PER UNIT) SQ SCH ×5 (00:06→23:39)
[2022-04-03] MEDS: PROPOFOL DRIP (ICU) 100 ML IV SCH ×5 (00:09→13:40)
[2022-04-03 02:36] VITALS: BP 108/56
[2022-04-03] MEDS: RT-ALBUTEROL/IPRATROPIUM 3 ML (DUONEB) VIAL INH SCH ×4 (02:36→19:13)
[2022-04-03] MEDS: CEFEPIME INJECTION 1,000 MG in NS (IVPB) 50 ML IV SCH ×4 (03:41→21:41)
[2022-04-03 03:57] LABS: BASOPHILS % (AUTO) 0 % (0-10); EOSINOPHILS % (AUTO) 0 % (0-10); HEMATOCRIT 40 % (40-54); HEMOGLOBIN 13.6 g/dL (13.3-17.7); LYMPHOCYTES # (AUTO) 0.9 10^3/uL (1.0-4.0); LYMPHOCYTES % (AUTO) 9 % (12-44); MEAN CORPUSCULAR HEMOGLOBIN 37 pg (25-34); MEAN CORPUSCULAR HGB CONC 34 g/dL (32-36); MEAN CORPUSCULAR VOLUME 110 fL (80-99); MEAN PLATELET VOLUME 11.4 fL (9.0-12.2); MONOCYTES # (AUTO) 0.7 10^3/uL (0.0-1.0); MONOCYTES % (AUTO) 8 % (0-12); NEUTROPHILS # (AUTO) 7.8 10^3/uL (1.8-7.8); NEUTROPHILS % (AUTO) 83 % (42-75); PLATELET COUNT 183 10^3/uL (130-400); WHITE BLOOD COUNT 9.4 10^3/uL (4.3-11.0)
[2022-04-03] MEDS: methylPREDNISolone 40 MG/ML (Solu-MEDROL) VIAL IV SCH ×4 (04:21→21:41)
[2022-04-03] MEDS: DOXYCYCLINE INJECTION 100 MG in NS (IVPB) 100 ML IV SCH ×2 (04:21→15:59)
[2022-04-03 04:26] LABS: ABG BASE EXCESS -5.4 MMOL/L (-2.5-2.5); ABG OXYGEN SATURATION 96 % (94-100); ABG PCO2 46 MMHG (35-45); ABG PO2 102 MMHG (79-93)
[2022-04-03 04:27] LABS: ABG PH 7.27 (7.37-7.43)
[2022-04-03 04:28] LABS: ALLENS TEST YES-POS; PATIENT TEMP 36.1; VENTILATOR YES
[2022-04-03 04:33] LABS: ALBUMIN 3.5 GM/DL (3.2-4.5); BILIRUBIN,TOTAL 0.4 MG/DL (0.1-1.0); CALCIUM 9.1 MG/DL (8.5-10.1); CREATININE SERUM 1.02 MG/DL (0.60-1.30); MAGNESIUM 2.4 MG/DL (1.6-2.4); PHOSPHORUS 3.3 MG/DL (2.3-4.7); POTASSIUM 4.2 MMOL/L (3.6-5.0); TOTAL PROTEIN 6.9 GM/DL (6.4-8.2)
[2022-04-03] MEDS: fentaNYL DRIP PRE-MIX 250 ML IV SCH ×2 (04:48→11:40)
[2022-04-03] MEDS: MAGNESIUM 1 GM/100 ML IVPB 100 ML IV SCH (06:32)
[2022-04-03] MEDS: POTASSIUM CL 10MEQ/50ML IVPB 50 ML IV SCH (06:32)
[2022-04-03] MEDS: KCL 20 MEQ TAB (K-DUR) PO SCH (06:33)
[2022-04-03 06:39] VITALS: BP 125/64
[2022-04-03] MEDS: PANTOPRAZOLE 40 MG (PROTONIX) VIAL IV SCH (09:16)
[2022-04-03] MEDS: ENOXAPARIN 40 MG/0.4 ML (LOVENOX) SYR SC SCH (09:17)
[2022-04-03] MEDS: VANCOMYCIN 1250 MG/NS 250 ML IVPB IV SCH ×2 (09:18)
--- NOTE | 2022-04-03 09:59 | Progress Note - Hospitalist ---
Subjective HPI/CC On Admission Date Seen by Provider: Apr 03, 2022 Patient is 62-year-old male who presented to the emergency department and extremis from respiratory distress and was emergently intubated. He is currently intubated and sedated and so all history is obtained from the records. Reportedly he had been feeling short of breath for the past 3 to 4 days and was taking his inhalers without much improvement. EMS was summoned and found his oxygen saturation to be around 70%. He was placed on 10 L of oxygen and giving a DuoNeb via EMS which did initially improve his hypoxia. Unfortunately he had profound work of breathing and BiPAP was attempted but he ended up being intubated shortly after arrival. During intubation they were able to suction out quite a bit of green sputum which has been sent for culture. He was transferred here for further management. There is no family at bedside. Subjective/Events-last exam Pt remains on vent but is very awake and attempting to write questions on the whiteboard. Asked for lights to be turned on. RN reports no other concerns or issues. Focused Exam Lactate Level 04/02/22 01:35: Lactic Acid Level 1.01 04/02/22 06:10: Lactic Acid Level 0.70 Objective Exam Vital Signs Vital Signs Date Time Temp Pulse Resp B/P (MAP) Pulse Ox O2 Delivery O2 Flow Rate FiO2 04/03/22 09:00 90 26 110/55 (73) 97 Mechanical Ventilator 45.00 04/03/22 08:00 35.6 04/03/22 06:39 45 Capillary Refill : Less Than 3 Seconds General Appearance: Other (intubated but awake, no distress, tolerating vent well) Respiratory: Lungs Clear, No Respiratory Distress Cardiovascular: Regular Rate, Rhythm, No Murmur Gastrointestinal: Normal Bowel Sounds, Soft Genital/Rectal: Other (porter) Extremity: No Calf Tenderness, No Pedal Edema, Other (absent second toe on right foot) Neurologic/Psychiatric: Alert, Other (writing questions on white board) Skin: Normal Color, Warm/Dry Results/Procedures Lab Laboratory Tests 04/02/22 20:00 04/03/22 03:41 Patient resulted labs reviewed. Imaging: Reviewed Imaging Report Assessment/Plan Assessment and Plan Assess & Plan/Chief Complaint Acute Respiratory Failure COPD Exacerbation with lower respiratory tract infection Sepsis due to pneumonia- POA h/o lung cancer s/p lobectomy Continue steroids Continue IV abx- DC Vanc as MRSA screen negative Maintained on vent TeleICU consulted, appreciate recs Hopeful for SBT today DVT ppx: Lovenox Critical Care Ventilator Management Diagnosis/Problems Diagnosis/Problems (1) Acute respiratory failure Status: Acute Qualifiers: Respiratory failure complication: hypercapnia Qualified Codes: J96.02 - Acute respiratory failure with hypercapnia DELTA MARINELLI MD Apr 03, 2022 09:59
[2022-04-03] MEDS ORDERED: ENOXAPARIN 40 MG/0.4 ML (LOVENOX) SYR SQ SCH (10:00)
--- NOTE | 2022-04-03 10:01 | Tele-ICU Progress Note ---
Progress Note video rounds completed 62 y/o male admitted with respiratory failure and PNA Intubated Vent settings: 26/500/45%/5 ABG this am: 7.27/46/102/21 PE: sedated and comfortable on vent Pulse: 85 NSR BP: 107/55 O2 sat: 97% On cefipime, doxyclene and vancomycin for antibioticsd Protonix and lovenox for appropriate prophylaxis IMP: resp failure and PNA PLAN: continue antibiotics and SBT as tolerated Focused Exam Lactate Level 04/02/22 01:35: Lactic Acid Level 1.01 04/02/22 06:10: Lactic Acid Level 0.70 Height, Weight, BMI Height: '" Weight: lbs. oz. kg; 29.05 BMI Method: Labs Laboratory Tests 04/02/22 20:00 04/03/22 03:41 Results Results/Procedures Labs Laboratory Tests 04/02/22 01:35 04/02/22 05:48 04/02/22 06:10 04/02/22 20:00 04/03/22 03:41 Patient resulted labs reviewed. Imaging: Reviewed Imaging Report Results Labs Labs Laboratory Tests 04/02/22 10:55: Influenza Type A (RT-PCR) Not Detected, Influenza Type B (RT-PCR) Not Detected, SARS-CoV-2 RNA (RT-PCR) Not Detected 04/02/22 11:35: Blood Gas Puncture Site L RADIAL, Blood Gas Patient Temperature 36.4, Arterial Blood pH 7.20*L, Arterial Blood Partial Pressure CO2 45, Arterial Blood Partial Pressure O2 157H, Arterial Blood HCO3 17*L, Arterial Blood Total CO2 18.6L, Arterial Blood Oxygen Saturation 98, Arterial Blood Base Excess -9.5L, Jasvir Test YES-POS, Blood Gas Ventilator Setting YES, Blood Gas Inspired Oxygen NA 04/02/22 11:51: Glucometer 189H 04/02/22 17:46: Glucometer 142H 04/02/22 20:00: Sodium Level 143, Potassium Level 4.4, Chloride Level 109H, Carbon Dioxide Level 19L, Anion Gap 15H, Blood Urea Nitrogen 29H, Creatinine 1.15, Estimat Glomerular Filtration Rate 71, BUN/Creatinine Ratio 25, Glucose Level 154H, Calcium Level 8.9, Magnesium Level 2.4 04/02/22 21:15: Blood Gas Puncture Site L RADIAL, Blood Gas Patient Temperature 36.7, Arterial Blood pH 7.27*L, Arterial Blood Partial Pressure CO2 48H, Arterial Blood Partial Pressure O2 67L, Arterial Blood HCO3 21L, Arterial Blood Total CO2 22.9, Arterial Blood Oxygen Saturation 93L, Arterial Blood Base Excess -4.4L, Jasvir Test YES-POS, Blood Gas Ventilator Setting YES, Blood Gas Inspired Oxygen NA 04/03/22 00:05: Glucometer 162H 04/03/22 03:41: Sodium Level 145, Potassium Level 4.2, Chloride Level 111H, Carbon Dioxide Level 16L, Anion Gap 18H, Blood Urea Nitrogen 32H, Creatinine 1.02, Estimat Glomerular Filtration Rate 82, BUN/Creatinine Ratio 31, Glucose Level 176H, Calcium Level 9.1, Magnesium Level 2.4, White Blood Count 9.4, Red Blood Count 3.66L, Hemoglobin 13.6, Hematocrit 40, Mean Corpuscular Volume 110H, Mean Corpuscular Hemoglobin 37H, Mean Corpuscular Hemoglobin Concent 34, Red Cell Distribution Width 15.1H, Platelet Count 183, Mean Platelet Volume 11.4, Immature Granulocyte % (Auto) 0, Neutrophils (%) (Auto) 83H, Lymphocytes (%) (Auto) 9L, Monocytes (%) (Auto) 8, Eosinophils (%) (Auto) 0, Basophils (%) (Auto) 0, Neutrophils # (Auto) 7.8, Lymphocytes # (Auto) 0.9L, Monocytes # (Auto) 0.7, Eosinophils # (Auto) 0.0, Basophils # (Auto) 0.0, Immature Granulocyte # (Auto) 0.0, Corrected Calcium 9.5, Phosphorus Level 3.3, Total Bilirubin 0.4, Aspartate Amino Transf (AST/SGOT) 11, Alanine Aminotransferase (ALT/SGPT) 15, Alkaline Phosphatase 58, Total Protein 6.9, Albumin 3.5 04/03/22 04:03: Blood Gas Puncture Site RIGHT RADIAL, Blood Gas Patient Temperature 36.1, Arterial Blood pH 7.27*L, Arterial Blood Partial Pressure CO2 46H, Arterial Blood Partial Pressure O2 102H, Arterial Blood HCO3 21L, Arterial Blood Total CO2 22.0, Arterial Blood Oxygen Saturation 96, Arterial Blood Base Excess -5.4L, Jasvir Test YES-POS, Blood Gas Ventilator Setting YES, Blood Gas Inspired Oxygen NA 04/03/22 06:05: Glucometer 191H Microbiology 04/02/22 MRSA Screen - Final, Complete MRSA not isolated TIESHA FRIEDMAN MD Apr 03, 2022 10:01
[2022-04-03 15:00] VITALS: BP 113/59
--- NOTE | 2022-04-03 17:15 | Tele-ICU Progress Note ---
Progress Note passed SBT and extubated Focused Exam Lactate Level 04/02/22 01:35: Lactic Acid Level 1.01 04/02/22 06:10: Lactic Acid Level 0.70 Height, Weight, BMI Height: '" Weight: lbs. oz. kg; 29.05 BMI Method: TIESHA FRIEDMAN MD Apr 03, 2022 17:14
[2022-04-03] MEDS ORDERED: TROUGH ORDER-PHARMACY XX NR (21:00)
[2022-04-04] MEDS: RT-ALBUTEROL/IPRATROPIUM 3 ML (DUONEB) VIAL INH SCH ×4 (02:50→21:50)
[2022-04-04] MEDS: methylPREDNISolone 40 MG/ML (Solu-MEDROL) VIAL IV SCH ×3 (03:27→17:02)
[2022-04-04] MEDS: CEFEPIME INJECTION 1,000 MG in NS (IVPB) 50 ML IV SCH ×2 (03:27→09:06)
[2022-04-04] MEDS: DOXYCYCLINE INJECTION 100 MG in NS (IVPB) 100 ML IV SCH (03:27)
[2022-04-04 04:27] LABS: BASOPHILS # (AUTO) 0.1 10^3/uL (0.0-0.1); BASOPHILS % (AUTO) 1 % (0-10); EOSINOPHILS % (AUTO) 0 % (0-10); HEMATOCRIT 41 % (40-54); HEMOGLOBIN 13.8 g/dL (13.3-17.7); LYMPHOCYTES # (AUTO) 0.7 10^3/uL (1.0-4.0); LYMPHOCYTES % (AUTO) 7 % (12-44); MEAN CORPUSCULAR HEMOGLOBIN 38 pg (25-34); MEAN CORPUSCULAR HGB CONC 33 g/dL (32-36); MEAN CORPUSCULAR VOLUME 113 fL (80-99); MEAN PLATELET VOLUME 11.4 fL (9.0-12.2); MONOCYTES # (AUTO) 0.6 10^3/uL (0.0-1.0); MONOCYTES % (AUTO) 6 % (0-12); NEUTROPHILS # (AUTO) 8.4 10^3/uL (1.8-7.8); NEUTROPHILS % (AUTO) 84 % (42-75); PLATELET COUNT 178 10^3/uL (130-400)
[2022-04-04] MEDS: inSUlin ASPART (NovoLOG) 1 UNIT/0.01 ML (CHARGE PER UNIT) SQ SCH ×2 (06:00→12:25)
[2022-04-04] MEDS: POTASSIUM CL 10MEQ/50ML IVPB 50 ML IV SCH (07:00)
[2022-04-04] MEDS: KCL 20 MEQ TAB (K-DUR) PO SCH (07:00)
[2022-04-04] MEDS: MAGNESIUM 1 GM/100 ML IVPB 100 ML IV SCH (07:00)
[2022-04-04 07:06] LABS: ALBUMIN 3.7 GM/DL (3.2-4.5); POTASSIUM 4.1 MMOL/L (3.6-5.0)
[2022-04-04 07:07] LABS: CALCIUM 8.9 MG/DL (8.5-10.1)
[2022-04-04 07:09] LABS: TOTAL PROTEIN 7.3 GM/DL (6.4-8.2)
[2022-04-04 07:10] LABS: BILIRUBIN,TOTAL 0.4 MG/DL (0.1-1.0)
[2022-04-04 07:12] LABS: CREATININE SERUM 0.86 MG/DL (0.60-1.30); PHOSPHORUS 2.3 MG/DL (2.3-4.7)
--- NOTE | 2022-04-04 08:55 | Diagnostic Imaging Report ---
INDICATION: Pneumonia. Comparison is made with prior exam of 04/02/2022. FINDINGS: The heart size is stable. There are postsurgical changes in the left lung. Some patchy right basilar atelectasis and/or pneumonitis. No pneumothorax. Mediastinum unremarkable. IMPRESSION: Patchy right basilar atelectasis and/or pneumonitis. Postsurgical changes in the left lung. Dictated by: Dictated on workstation # [id number]
[2022-04-04] MEDS: PANTOPRAZOLE 40 MG (PROTONIX) VIAL IV SCH (09:05)
[2022-04-04] MEDS: ENOXAPARIN 40 MG/0.4 ML (LOVENOX) SYR SC SCH (09:05)
--- NOTE | 2022-04-04 10:18 | Occupational Therapy Eval ---
OT Evaluation-General/PLF Medical Diagnosis Admission Date Apr 02, 2022 at 03:31 Medical Diagnosis: respiratory distress Onset Date: Apr 02, 2022 Therapy Diagnosis Therapy Diagnosis: decreased activity tolerance. Precautions Precautions/Isolations: Fall Prevention, Standard Precautions Referral Physician: Hill Referral Reason: Evaluation/Treatment Medical History Additional Medical History COPD, lung cancer s/p lobectomy Current History 04/02/22 ED with resp distress and emergently intubated. Extubated 04/03 Social History Home: Single Level Current Living Status: Spouse (& son) Entry Into Home: Stairs Without Railing Steps Into Home: 2 ADL-Prior Level of Function SCALE: Activities may be completed with or without assistive devices. 3-Cpkxdapfsy-kqfjugl completes the activity by him/herself with no assistance from a helper. 5-Set-up or Clean-up Assistance-helper sets up or cleans up; patient completes activity. [place] assists only prior to or following the activity. 4-Supervision or Touching Assistance-helper provides verbal cues and/or touching/steadying and/or contact guard assistance as patient completes activity . Assistance may be provided throughout the activity or intermittently. 3-Partial/Moderate Assistance-helper does LESS THAN HALF the effort. [place] lifts, holds or supports trunk or limbs, but provides less than half the effort. 2-Substantial/Maximal Assistance-helper does MORE THAN HALF the effort. [place] lifts or holds trunk or limbs and provides more than half the effort. 5-Rkufbqztq-xgiiuz does ALL the effort. Patient does none of the effort to complete the activity. Or, the assistance of 2 or more helpers is required for the patient to complete the activity. If activity was not attempted, code reason: 7-Patient Refused. 9-Not Applicable-not attempted and the patient did not perform the activity before the current illness, exacerbation or injury. 10-Not Attempted due to Environmental Limitations-(lack of equipment, weather restraints, etc.). 88-Not Attempted due to Medical Conditions or Safety Concerns. ADL PLOF Comments Pt reports IND with ADLS and functional mobility at [facility], no AD. he reports increased difficulty with LE dressing/footwear due to difficulty breathing, but he was able to manage. He has a tub/shower with SC, recently has been able to tolerate standing in the shower again. He has a toilet riser. Self Care: Independent Functional Cognition: Independent OT Current Status Subjective Pt in recliner, agreeable to OT Tx. Mental Status/Objective Patient Orientation: Person, Place, Time, Situation Attachments: Hernandez Catheter Current Hand Dominance: Right Upper Extremity ROM WFL Upper Extremity Strength grossly 4/5 ADL-Treatment Eating (QC): 6 (Per pt report.) Oral Hygiene (QC): 5 On/Off Footwear (QC): 7 Other Treatments Pt in recliner, agreeable to OT tx. Pt provided information about PLOF and home set up and participated in UE screen. Pt declined attempting footwear at this time due to recent breathing difficulties leading him to be at the hospital. OT educated pt on sock aide, but pt declined further education about sock aide and declined trial. OT also educated pt on film processing utility worker to pick items up off of the floor, pt verbalized understanding. In order to increase BUE strength and activity tolerance, pt completed x5 reps each of the following BUE exercises: shoulder flexion, front punch, elbow flexion/extension. Post tx, pt in recliner, call light in reach and all needs met. Education OT Patient Education: Correct positioning, Energy conservation, Modified ADL techniques, Progress toward Goal/Update tx plan, Purpose of tx/functional activities, Rehab process, Use of adapted equipment Teaching Recipient: Patient Response to Teaching: Verbalize Understanding OT Intermediate Goals Intermediate Goals Time Frame: Apr 15, 2022 Eating (QC): 6 Oral Hygiene (QC): 6 Toileting Hygiene (QC): 6 Shower/Bathe Self (QC): 6 Upper Body Dressing (QC): 6 Lower Body Dressing (QC): 6 On/Off Footwear (QC): 6 1=Demonstrate adherence to instructed precautions during ADL tasks. 2=Patient will verbalize/demonstrate understanding of assistive devices/modifications for ADL. 3=Patient will improve strength/tolerance for activity to enable patient to perform ADL's. OT Education/Plan Problem List/Assessment Assessment: Decreased Activ Tolerance, Decreased UE Strength, Impaired Funct Balance, Impaired I ADL's, Impaired Self-Care Skills Pt would benefit from short term skilled OT Services in order to increase BUE strength and activity tolerance and increase safety and independence with ADLS to maximize LOF for safe return home. Discharge Recommendations Plan/Recommendations: Continue POC Treatment Plan/Plan of Care Patient would benefit from OT for education, treatment and training to promote independence in ADL's, mobility, safety and/or upper extremity function for ADL's. Plan of Care: ADL Retraining, Functional Mobility, UE Funct Exercise/Act Treatment Duration: Apr 15, 2022 Frequency: 3 times per week (3-5 times per week.) Estimated Hrs Per Day: .25 hour per day Agreement: Yes Rehab Potential: Good Time Start Time: 09:56 Stop Time: 10:06 DATE: Apr 04, 2022 Total Time Billed (hr/min): 10 Billed Treatment Time 1, SIGIFREDO AG OT Apr 04, 2022 10:18
--- NOTE | 2022-04-04 10:54 | Physical Therapy Evaluation ---
PT Evaluation-General Medical Diagnosis Admission Date Apr 02, 2022 at 03:31 Medical Diagnosis: respiratory distress Onset Date: Apr 02, 2022 Therapy Diagnosis Therapy Diagnosis: generalized weakness/debility Precautions Precautions/Isolations: Fall Prevention, Standard Precautions Referral Physician: Hill Reason for Referral: Evaluation/Treatment Medical History Pertinent Medical History: COPD Additional Medical History lung cancer Current History ER secondary to respiratory failure. Patient extubated 04/03/22 Reviewed History: Yes Social History Home: Single Level Current Living Status: Spouse (& son) Entry Into Home: Stairs Without Railing PT Steps Into Home: 2 Prior Prior Level of Function SCALE: Activities may be completed with or without assistive devices. 5-Xbarikbcqj-tuvotyg completes the activity by him/herself with no assistance from a helper. 5-Set-up or Clean-up Assistance-helper sets up or cleans up; patient completes activity. [place] assists only prior to or following the activity. 4-Supervision or Touching Assistance-helper provides verbal cues and/or touching/steadying and/or contact guard assistance as patient completes activity. Assistance may be provided throughout the activity or intermittently. 3-Partial/Moderate Assistance-helper does LESS THAN HALF the effort. [place] lifts, holds or supports trunk or limbs, but provides less than half the effort. 2-Substantial/Maximal Assistance-helper does MORE THAN HALF the effort. [place] lifts or holds trunk or limbs and provides more than half the effort. 7-Rootwctjk-uytsvl does ALL the effort. Patient does none of the effort to complete the activity. Or, the assistance of 2 or more helpers is required for the patient to complete the activity. If activity was not attempted, code reason: 7-Patient Refused. 9-Not Applicable-not attempted and the patient did not perform the activity before the current illness, exacerbation or injury. 10-Not Attempted due to Environmental Limitations-(lack of equipment, weather restraints, etc.). 88-Not Attempted due to Medical Conditions or Safety Concerns. Bed Mobility: 6 Transfers (B,C,W/C): 6 Gait: 6 Stairs: 6 Indoor Mobility (Ambulation): Independent Stairs: Independent Prior Devices Use: Motorized scooter, Walker, Other-see list below Prior Device Use: cane PT Evaluation-Current Subjective Patient agrees to PT. He appears very anxious due to increase SOA at rest. Objective Patient Orientation: Normal For Age Attachments: Oxygen, Hernandez Catheter ROM/Strength ROM Lower Extremities bilateral LE WFL Strength Lower Extremities 3+/5 grossly bilateral LE all planes Integumentary/Posture Bowel Incontinence: Yes Bladder Incontinence: Hernandez Cath Posture slight trunk flexed posture Neuromuscular (Tone, Coordination, Reflexes) grossly intact Sensory Vision: Functional Hearing: Functional Hand Dominance: Right Transfers Lying to Sitting/Side of Bed(Q: 3 Sit to Stand (QC): 3 Chair/Gik-ap-Ymtbg Xfer(QC): 3 Gait Mode of Locomotion: Both Anticipated Mode of Locomotion: Both Gait Assistive Device: FWW Balance Sitting Static: Normal Sitting Dynamic: Normal Standing Static: Fair Standing Dynamic: Fair Assessment/Needs Patient has increase SOA with minimal activity and is up recliner. SAO2 decreased to 88% on O2 with quick recovery to 90%. RN notified. Rehab Potential: Guarded PT [place] Head Assistant Wet Process Goals Care Home Goals PT Care Home Goals Time Frame: Apr 23, 2022 Roll Left & Right (QC): 6 Sit to Lying (QC): 6 Lying-Sitting on Side/Bed(QC): 6 Sit to Stand (QC): 6 Chair/Mob-te-Iznvq Xfer(QC): 6 Walk 10 feet (QC): 4 Walk 50ft with 2 Turns (QC): 4 PT Plan Problem List Problem List: Activity Tolerance, Functional Strength, Safety, Balance, Gait, Transfer, Bed Mobility Treatment/Plan Treatment Plan: Continue Plan of Care Treatment Plan: Bed Mobility, Education, Functional Activity Derrick, Functional Strength, Gait, Safety, Therapeutic Exercise, Transfers Treatment Duration: Apr 23, 2022 Frequency: 6 times per week Estimated Hrs Per Day: .25 hour per day Patient and/or Family Agrees t: Yes Time Time In: 810 Time Out: 827 DATE: Apr 04, 2022 Total Billed Treatment Time: 17 Total Billed Treatment 1 visit EVMod 17 min LEROY QUINTANILLA PT Apr 04, 2022 10:54
--- NOTE | 2022-04-04 10:58 | Tele-ICU Progress Note ---
Subjective Date Seen by a Provider: Apr 04, 2022 Time Seen by a Provider: 10:58 Subjective/Events-last exam (Tele-ICU Physician , consultation) Available chart/ vitals / labs / Images reviewed H&P is from ER notes Patient's information available about PMH, allergy reviewed in EMR. ROS as per chart and RN report Video assessment done using teleICU camera, rest of exam as per RN Discussed with RN. He is a 62-year-old male with past medical history of left upper lobectomy for carcinoma of the lung about 15 months ago subsequently developed a loculated left upper hydropneumothorax and also infection with cryptococcus for which she is treated now admitted with shortness of breath and acute respiratory distress requiring intubation. After treatment now he is extubated currently on a 3 L nasal cannula but his exercise tolerance is very limited. His a sputum cultures grew haemophilus influenza. Impression 1. Haemophilus influenza pneumonia 2. Acute exacerbation of COPD 3. Acute hypercarbic respiratory failure improving 4. History of left lung cancer status post left upper lobectomy 5. Chronic postoperative left upper hydropneumothorax. Recommendations 1. Continue IV antibiotics 2. Bronchodilator therapy per primary care. 3. DVT prophylaxis and ulcer prophylaxis. Sepsis Event Evaluation Height, Weight, BMI Height: '" Weight: lbs. oz. kg; 28.47 BMI Method: Focused Exam Lactate Level 04/02/22 01:35: Lactic Acid Level 1.01 04/02/22 06:10: Lactic Acid Level 0.70 Exam Exam Patient acknowledged, consented, and participated in this virtual visit which was conducted using real time audio/video Vital Signs Date Time Temp Pulse Resp B/P (MAP) Pulse Ox O2 Delivery O2 Flow Rate FiO2 04/04/22 09:00 101 25 123/58 (79) 93 Nasal Cannula 4.00 04/04/22 08:02 95 Nasal Cannula 3.00 04/04/22 08:00 36.8 04/04/22 08:00 99 15 146/71 (96) 94 Nasal Cannula 4.00 04/04/22 07:37 89 04/04/22 07:00 89 15 135/67 (89) 97 Nasal Cannula 4.00 04/04/22 06:00 91 18 152/75 (100) 97 Nasal Cannula 4.00 04/04/22 05:00 92 18 149/67 (94) 96 Nasal Cannula 4.00 04/04/22 04:00 97 Nasal Cannula 4.00 04/04/22 04:00 97 17 137/70 (92) 97 Nasal Cannula 4.00 04/04/22 03:38 36.5 04/04/22 03:00 96 18 134/62 (86) 95 Nasal Cannula 4.00 04/04/22 02:50 97 Nasal Cannula 3.00 04/04/22 02:00 86 17 126/65 (85) 96 Nasal Cannula 4.00 04/04/22 01:00 87 17 135/67 (89) 97 Nasal Cannula 4.00 04/04/22 01:00 90 04/04/22 00:00 89 22 134/69 (90) 97 Nasal Cannula 4.00 04/03/22 23:42 93 Nasal Cannula 4.00 04/03/22 23:39 36.5 04/03/22 23:00 96 27 133/66 (88) 97 Nasal Cannula 4.00 04/03/22 22:00 99 24 148/70 (96) 95 Nasal Cannula 4.00 04/03/22 21:00 106 28 128/70 (89) 95 Nasal Cannula 4.00 04/03/22 20:00 106 19 155/69 (97) 96 Nasal Cannula 4.00 04/03/22 20:00 93 Nasal Cannula 4.00 04/03/22 19:25 36.8 Nasal Cannula 4.00 04/03/22 19:14 93 Nasal Cannula 3.00 04/03/22 19:00 107 04/03/22 19:00 101 19 146/73 (97) 96 Nasal Cannula 4.00 04/03/22 18:50 Nasal Cannula 4.00 04/03/22 18:00 97 18 139/70 (93) 94 Mechanical Ventilator 45.00 04/03/22 17:45 100 135/80 04/03/22 17:00 96 20 142/63 (89) 97 Mechanical Ventilator 45.00 04/03/22 16:00 75 26 110/60 (77) 95 Mechanical Ventilator 45.00 04/03/22 16:00 36.1 04/03/22 16:00 95 Mechanical Ventilator 35 04/03/22 16:00 35 04/03/22 15:45 75 113/58 04/03/22 15:00 79 26 118/59 (78) 95 Mechanical Ventilator 45.00 04/03/22 15:00 76 26 97 35 04/03/22 14:10 81 116/54 04/03/22 14:00 81 21 116/54 (74) 95 Mechanical Ventilator 45.00 04/03/22 13:40 86 116/60 04/03/22 13:00 74 04/03/22 13:00 81 8 116/54 (74) 94 Mechanical Ventilator 45.00 04/03/22 12:00 73 26 111/60 (77) 95 Mechanical Ventilator 45.00 04/03/22 12:00 94 Mechanical Ventilator 35 04/03/22 12:00 35.6 04/03/22 12:00 35 04/03/22 11:40 76 112/57 04/03/22 11:00 78 26 113/59 (77) 97 Mechanical Ventilator 45.00 I & O 04/04/22 07:00 Intake Total 2700 ml Output Total 2350 ml Balance 350 ml Height & Weight Height: '" Weight: lbs. oz. kg; 28.47 BMI Method: General Appearance: Other (intubated and sedated) HEENT: PERRL/EOMI, Moist Mucous Membranes; No Scleral Icterus (L), No Scleral Icterus (R) Neck: Normal Inspection, Supple Respiratory: Lungs Clear, Other (on vent) Cardiovascular: Regular Rate, Rhythm, No Murmur Capillary Refill: Less Than 3 Seconds Gastrointestinal: normal bowel sounds, non tender, soft Extremity: Normal Capillary Refill, No Calf Tenderness, No Pedal Edema, Other (missing second digit on rightfoot) Neurologic/Psychiatric: Alert (opens eyes when spoken to but quickly back asleep- sedate and comfortable appearing) Skin: Normal Color, Warm/Dry Results Lab Laboratory Tests 04/02/22 20:00 04/03/22 03:41 04/04/22 04:10 04/04/22 06:41 Assessment/Plan Assessment/Plan as above Critical Care: Critically Ill Patient Time spent with patient (mins): 15 LUCY JEFFERSON MD Apr 04, 2022 10:58
[2022-04-04] MEDS ORDERED: CEFDINIR 300 MG (OMNICEF) CAP PO NR (13:00)
[2022-04-04] MEDS ORDERED: ASCO-262 PO (13:29)
[2022-04-04] MEDS ORDERED: ASPI-1238 PO (13:29)
[2022-04-04] MEDS ORDERED: ALOG25TA2 PO (13:29)
[2022-04-04] MEDS ORDERED: ATOR40TA70 PO (13:30)
[2022-04-04] MEDS ORDERED: CHOL-34 PO (13:31)
[2022-04-04] MEDS ORDERED: EMPA25TA PO (13:31)
[2022-04-04] MEDS ORDERED: FINA5TAB6 PO (13:32)
[2022-04-04] MEDS ORDERED: ISAV186C2 PO (13:33)
[2022-04-04] MEDS ORDERED: LOSA50TA63 PO (13:34)
[2022-04-04] MEDS ORDERED: METF-398 PO (13:34)
[2022-04-04] MEDS ORDERED: METO100T12 PO (13:35)
[2022-04-04] MEDS ORDERED: MULT-1136 PO (13:36)
[2022-04-04] MEDS ORDERED: TERA10CA3 PO (13:37)
--- NOTE | 2022-04-04 18:06 | Progress Note - Hospitalist ---
Subjective HPI/CC On Admission Date Seen by Provider: Apr 04, 2022 Time Seen by Provider: 09:40 Patient is 62-year-old male who presented to the emergency department and extremis from respiratory distress and was emergently intubated. He is currently intubated and sedated and so all history is obtained from the records. Reportedly he had been feeling short of breath for the past 3 to 4 days and was taking his inhalers without much improvement. EMS was summoned and found his oxygen saturation to be around 70%. He was placed on 10 L of oxygen and giving a DuoNeb via EMS which did initially improve his hypoxia. Unfortunately he had profound work of breathing and BiPAP was attempted but he ended up being intubated shortly after arrival. During intubation they were able to suction out quite a bit of green sputum which has been sent for culture. He was transferred here for further management. There is no family at bedside. Subjective/Events-last exam He is feeling better. He denies shortness of breath. He denies pain. Focused Exam Lactate Level 04/02/22 01:35: Lactic Acid Level 1.01 04/02/22 06:10: Lactic Acid Level 0.70 Objective Exam Vital Signs Vital Signs Date Time Temp Pulse Resp B/P (MAP) Pulse Ox O2 Delivery O2 Flow Rate FiO2 04/04/22 16:06 93 Nasal Cannula 3.00 04/04/22 14:00 80 19 146/80 (102) 04/04/22 08:00 36.8 04/03/22 16:00 35 Capillary Refill : Less Than 3 Seconds General Appearance: No Apparent Distress, WD/WN Respiratory: No Respiratory Distress, Decreased Breath Sounds Cardiovascular: Regular Rate, Rhythm, No Murmur Gastrointestinal: Normal Bowel Sounds, Soft Extremity: Normal Inspection, No Pedal Edema Neurologic/Psychiatric: Alert, Normal Mood/Affect Skin: Normal Color, Warm/Dry Results/Procedures Lab Laboratory Tests 04/04/22 04:10 04/04/22 06:41 Patient resulted labs reviewed. Imaging: Reviewed Imaging Report Assessment/Plan Assessment and Plan Assess & Plan/Chief Complaint Acute Respiratory Failure COPD Exacerbation with lower respiratory tract infection Sepsis due to pneumonia h/o lung cancer s/p lobectomy Extubated 04/03 Transition to oral steroids Transition to Augmentin Transfer to medical floor Debility PT/OT IRF evaluation DVT ppx: Lovenox Endotracheally intubated, resolved Diagnosis/Problems Diagnosis/Problems (1) Acute respiratory failure Status: Acute Qualifiers: Respiratory failure complication: hypoxia and hypercapnia Qualified Codes: J96.01 - Acute respiratory failure with hypoxia; J96.02 - Acute respiratory failure with hypercapnia (2) COPD (chronic obstructive pulmonary disease) Status: Acute Qualifiers: COPD type: COPD with acute lower respiratory infection Qualified Codes: J44.0 - Chronic obstructive pulmonary disease with (acute) lower respiratory infection (3) Sepsis due to pneumonia Status: Acute (4) History of lung cancer Status: Chronic (5) S/P partial lobectomy of lung Status: Chronic (6) Debility Status: Acute KATHERYN CHICAS MD Apr 04, 2022 18:06
[2022-04-04] MEDS: CEFDINIR 300 MG (OMNICEF) CAP PO SCH (22:00)
[2022-04-04] MEDS: inSUlin ASPART (NovoLOG) 1 UNIT/0.01 ML (CHARGE PER UNIT) SC SCH (22:00)
[2022-04-05] VITALS (7 sets, daily range): BP systolic 133–170; BP diastolic 67–80
[2022-04-05] MEDS: RT-ALBUTEROL/IPRATROPIUM 3 ML (DUONEB) VIAL INH SCH ×2 (02:44→07:08)
[2022-04-05 05:56] LABS: BASOPHILS # (AUTO) 0.1 10^3/uL (0.0-0.1); BASOPHILS % (AUTO) 0 % (0-10); EOSINOPHILS % (AUTO) 0 % (0-10); HEMATOCRIT 41 % (40-54); HEMOGLOBIN 14.3 g/dL (13.3-17.7); LYMPHOCYTES # (AUTO) 1.6 10^3/uL (1.0-4.0); LYMPHOCYTES % (AUTO) 14 % (12-44); MEAN CORPUSCULAR HEMOGLOBIN 37 pg (25-34); MEAN CORPUSCULAR HGB CONC 35 g/dL (32-36); MEAN CORPUSCULAR VOLUME 108 fL (80-99); MEAN PLATELET VOLUME 10.9 fL (9.0-12.2); MONOCYTES # (AUTO) 1.2 10^3/uL (0.0-1.0); MONOCYTES % (AUTO) 10 % (0-12); NEUTROPHILS # (AUTO) 8.8 10^3/uL (1.8-7.8); NEUTROPHILS % (AUTO) 72 % (42-75); PLATELET COUNT 211 10^3/uL (130-400); WHITE BLOOD COUNT 12.2 10^3/uL (4.3-11.0)
[2022-04-05 06:08] LABS: POTASSIUM 4.1 MMOL/L (3.6-5.0)
[2022-04-05 06:10] LABS: CALCIUM 8.8 MG/DL (8.5-10.1)
[2022-04-05 06:14] LABS: CREATININE SERUM 0.77 MG/DL (0.60-1.30)
--- NOTE | 2022-04-05 08:55 | Occ Therapy Progress Note ---
Therapy Progress Note Pt up in recliner, declines OT tx at this time. Pt indicates he is tired following PT tx and he didn't sleep well, requesting to rest. OT informed pt about the purpose/benefit of OT tx, he verbalized understanding, but again states he is too tired right now. OT demonstrated UE Exercises for pt to complete throughout the day to increase BUE strength and activity tolerance, he verbalized understanding stating he will attempt exercises later. OT will attempt tx again at next available time. 1, refusal [id number] SIGIFREDO KELLEY OT Apr 05, 2022 08:55
[2022-04-05] MEDS: ENOXAPARIN 40 MG/0.4 ML (LOVENOX) SYR SC SCH (09:05)
[2022-04-05] MEDS: CEFDINIR 300 MG (OMNICEF) CAP PO SCH ×2 (09:05→20:43)
--- NOTE | 2022-04-05 09:46 | Physical Therapy Daily Note ---
PT Daily Note-Current Subjective Patient agrees to PT. Pain Section J - Health Conditions 1. Rarely or not at all 2. Occasionally 3. Frequently 4. Almost constantly 8. Unable to answer Pain Effect on Sleep: 4 Pain Interference with Therapy: 4 Pain Interference w/Day-to-Day: 4 Mental Status Patient Orientation: Normal For Age Attachments: Oxygen Transfers SCALE: Activities may be completed with or without assistive devices. 2-Ducalcwlsy-hwttluw completes the activity by him/herself with no assistance from a helper. 5-Set-up or Clean-up Assistance-helper sets up or cleans up; patient completes activity. [place] assists only prior to or following the activity. 4-Supervision or Touching Assistance-helper provides verbal cues and/or touching/steadying and/or contact guard assistance as patient completes activity. Assistance may be provided throughout the activity or intermittently. 3-Partial/Moderate Assistance-helper does LESS THAN HALF the effort. [place] lifts, holds or supports trunk or limbs, but provides less than half the effort. 2-Substantial/Maximal Assistance-helper does MORE THAN HALF the effort. [place] lifts or holds trunk or limbs and provides more than half the effort. 1-Tzqmaedcz-fdsfhm does ALL the effort. Patient does none of the effort to complete the activity. Or, the assistance of 2 or more helpers is required for the patient to complete the activity. If activity was not attempted, code reason: 7-Patient Refused. 9-Not Applicable-not attempted and the patient did not perform the activity before the current illness, exacerbation or injury. 10-Not Attempted due to Environmental Limitations-(lack of equipment, weather restraints, etc.). 88-Not Attempted due to Medical Conditions or Safety Concerns. Sit to Stand (QC): 4 Gait Training Distance: 150' Walk 10 feet (QC): 4 Walk 50 ft with 2 Turns(QC): 4 Walk 150 ft (QC): 4 Gait Assistive Device: FWW functional gait sequence with FWW Assessment Noted increase SOA with minimal activity. Patient recovers with time. Patient remains up in recliner with needs met. PT Grounds Maintenance Worker Goals Mcfp Goals PT Grounds Maintenance Worker Goals Time Frame: Apr 23, 2022 Roll Left & Right (QC): 6 Sit to Lying (QC): 6 Lying-Sitting on Side/Bed(QC): 6 Sit to Stand (QC): 6 Chair/Lsv-xf-Wgbcp Xfer(QC): 6 Walk 10 feet (QC): 4 Walk 50ft with 2 Turns (QC): 4 PT Plan Treatment/Plan Treatment Plan: Continue Plan of Care Treatment Plan: Bed Mobility, Education, Functional Activity Derrick, Functional Strength, Gait, Safety, Therapeutic Exercise, Transfers Treatment Duration: Apr 23, 2022 Frequency: 6 times per week Estimated Hrs Per Day: .25 hour per day Patient and/or Family Agrees t: Yes Time Time In: 825 Time Out: 835 DATE: Apr 05, 2022 Total Billed Treatment Time: 10 Total Billed Treatment 1 visit FA 10 min LEROY QUINTANILLA PT Apr 05, 2022 09:46
[2022-04-05] MEDS: inSUlin ASPART (NovoLOG) 1 UNIT/0.01 ML (CHARGE PER UNIT) SC SCH ×4 (10:25→20:44)
--- NOTE | 2022-04-05 10:51 | Occ Therapy Progress Note ---
Therapy Progress Note OT tx attempted at 1045, pt again declined OT Services at this time. OT offered ADLS and UE exercises, educating pt on purpose/benefit of each. Pt indicates he completes UE exercises throughout the day, and he has no concerns with his ability to complete ADLS at this time. Pt reports IND with toileting, eating and oral care and feels like he would be able to dress himself. Pt declined completing ADLs while OT was in the room with pt. Pt declines further OT service s, stating he doesn't need OT. D/C from OT at this time per pt request. 1, refusal d/c SIGIFREDO KELLEY OT Apr 05, 2022 10:51
[2022-04-05] MEDS ORDERED: fentaNYL INJ 100 MCG/2 ML AMP IV ONE (13:16)
[2022-04-05] MEDS ORDERED: MIDAZOLAM 5 MG/5 ML (VERSED) VIAL IJ ONE (13:16)
[2022-04-05] MEDS ORDERED: ROCURONIUM 10 MG/ML 5 ML SYRINGE IV ONE (13:16)
[2022-04-05] MEDS ORDERED: KETAMINE HCL 100 MG/ML 5 ML VIAL IJ ONE (13:16)
[2022-04-05] MEDS ORDERED: RT-ALBUTEROL/IPRATROPIUM 3 ML (DUONEB) VIAL IH PRN (13:30)
[2022-04-05] MEDS ORDERED: CEFD300C3 PO (14:11)
[2022-04-05] MEDS ORDERED: PRED10TA22 PO (14:11)
[2022-04-05] MEDS: RT-ALBUTEROL/IPRATROPIUM 3 ML (DUONEB) VIAL IH SCH (14:15)
--- NOTE | 2022-04-05 14:19 | Discharge Summary ---
Discharge Summary Reconcile Patient Problems Problems Reviewed?: Yes Instructions for [facility] Assessment/Instructions Take medications as prescribed. Follow up with your PCP. You are being set up with home health care. Return with worsening shortness of breath, chest pain, or if you feel like you are getting worse. Physician to follow Patient: MA Discharge Diet for Home: Regular Diet Hospital Course Date of Admission: Apr 02, 2022 at 03:31 Admission Diagnosis : Sepsis due to pneumonia, Acute respiratory failure with hypoxia Family Physician/Provider: Steff,Local Physician Date of Discharge: 04/05/22 Discharge Diagnosis: Sepsis due to pneumonia, Acute respiratory failure with hypoxia Hospital Course: Jimi Sheppard is a 62 year old male with PMH HTN, HLD, T2DM, BPH, COPD, who presented with shortness of breath and was admitted with acute respiratory failure. He was intubated in the ER. He was treated for sepsis due to pneumonia due to H. influenza. He was transitioned to oral Omnicef. He was also treated for COPD exacerbation with steroids. He was given a steroid taper. He was successfully extubated and continued to improve. He was still requiring 2 L continuously and was set up with home oxygen. He was set up with [email or web address]. He was discharged home in improved, stable condition. He should follow up with his PCP in a week or two. Labs and Pending Lab Test: Laboratory Tests 04/04/22 21:44: Glucometer 218H 04/05/22 05:40: White Blood Count 12.2H, Red Blood Count 3.83L, Hemoglobin 14.3, Hematocrit 41, Mean Corpuscular Volume 108H, Mean Corpuscular Hemoglobin 37H, Mean Corpuscular Hemoglobin Concent 35, Red Cell Distribution Width 15.2H, Platelet Count 211, Mean Platelet Volume 10.9, Immature Granulocyte % (Auto) 4, Neutrophils (%) (Auto) 72, Lymphocytes (%) (Auto) 14, Monocytes (%) (Auto) 10, Eosinophils (%) (Auto) 0, Basophils (%) (Auto) 0, Neutrophils # (Auto) 8.8H, Lymphocytes # (Auto) 1.6, Monocytes # (Auto) 1.2H, Eosinophils # (Auto) 0.0, Basophils # (Auto) 0.1, Immature Granulocyte # (Auto) 0.5H, Sodium Level 143, Potassium Level 4.1, Chloride Level 107, Carbon Dioxide Level 24, Anion Gap 12, Blood Urea Nitrogen 28H, Creatinine 0.77, Estimat Glomerular Filtration Rate 100, BUN/Creatinine Ratio 36, Glucose Level 179H, Calcium Level 8.8 04/05/22 06:40: Glucometer 172H 04/05/22 11:14: Glucometer 239H Microbiology 04/02/22 Blood Culture - Preliminary, Resulted No growth 04/02/22 MRSA Screen - Final, Complete MRSA not isolated Home Meds Active Prednisone 10 Mg Tab.ds.pk 10 Mg PO DAILY Take 6 tabs(60mg)daily,decrease by 1 tab(10MG)daily. Cefdinir 300 Mg Capsule 300 Mg PO BID 5 Days Reported Terazosin HCl 10 Mg Capsule 10 Mg PO HS Multivitamin 1 Each Tablet 1 Each PO DAILY Metoprolol Tartrate 100 Mg Tablet 50 Mg PO BID TAKES 1/2 OF (100MG) TAB Metformin HCl 850 Mg Tablet 850 Mg PO BID Losartan Potassium 50 Mg Tablet 50 Mg PO DAILY Cresemba (Isavuconazonium Sulfate) 186 Mg Capsule 372 Mg PO DAILY TAKES 2 (186MG) TAB Finasteride 5 Mg Tablet 5 Mg PO HS Jardiance (Empagliflozin) 25 Mg Tablet 12.5 Mg PO DAILY TAKES 1/2 OF (25MG) TAB Vitamin D3 (Cholecalciferol (Vitamin D3)) 25 Mcg (1000 Unit) Tablet 25 Mcg PO DAILY Atorvastatin Calcium 40 Mg Tablet 20 Mg PO HS TAKES 1/2 OF (40MG) TAB Aspirin EC (Aspirin) 81 Mg Tablet.dr 81 Mg PO DAILY Vitamin C (Ascorbate Calcium) 500 Mg Tablet 500 Mg PO DAILY Alogliptin (Alogliptin Benzoate) 25 Mg Tablet 25 Mg PO 1200 Omeprazole 20 Mg Capsule.dr 20 Mg PO DAILY Stiolto Respimat Inhal [place] (Tiotropium Br/Olodaterol HCl) 2.5 Mcg-2.5 Mcg/Actuation Mist.inhal 2 Puff PO DAILY Patient Allergies: Coded Allergies: No Known Drug Allergies (Unverified , 12/26/20) Home Health Need/Face to Face Date of Face to Face: Apr 05, 2022 Clinical Findings: Generalized weakness and fatigue, Instability, Muscle weakness, Unsteady gait I have seen Pt [id number]: Yes Discharged To: Home Diagnosis/Conditions: COPD HTN HLD T2DM BPH Problems/Diagnosis/Condition: (1) HTN (hypertension) (2) HLD (hyperlipidemia) (3) BPH (benign prostatic hyperplasia) (4) T2DM (type 2 diabetes mellitus) (5) COPD (chronic obstructive pulmonary disease) (6) S/P partial lobectomy of lung (7) History of lung cancer (8) Debility (9) Acute respiratory failure Patient is Homebound due to: Catarina fall risk due to instabilty, Muscle weakness, Shortness of breath/distress Homebound Status Due to the above stated illness, injury or surgical procedure (medical condition or diagnosis) and associated clinical findings, the patient is homebo und because of his/her inability to leave home except with aid of a supportive device and/or person AND leaving the home requires a considerable and taxing effort or is medically contraindicated. Pt req the following assistanc: Aid of another person Home Health Nursing Orders Home Health Services Order: Nursing Services, Production Supervisor Trainee-Evaluate & Treat, Physical Therapy-Evaluate & Treat Home Health Infusion Therapy Line Start Date: Apr 02, 2022 Therapy Orders Therapy Orders: OT (must have SN or PT order), Physical Therapy Therapy Specific Orders: Eval assistive deivces, Teach enviro modifications/safety, Gait training, Increase strength/endurance Certify Stmt I certify that this patient is under my care and that I, a nurse practitioner or a physician; a radiology practitioner assistant working with me, had a face to face encounter that - meets the physician face to face encounter requirements with this patient as dated. Discharge Physical Exam General: Alert, No Acute Distress HEENT: Atraumatic, EOMI, Mucous Memb Moist/[place] Lungs: Clear to Auscultation, Normal Air Movement Heart: Regular Rate, No Murmurs Abdomen: Normal Bowel Sounds, Soft, No Tenderness Extremities: No Edema, No Tenderness/Swelling Skin: No Breakdown, No Significant Lesion Psych/Mental Status: Mental Status NL, Mood NL KATHERYN CHICAS MD Apr 05, 2022 14:18
[2022-04-06] MEDS: RT-ALBUTEROL/IPRATROPIUM 3 ML (DUONEB) VIAL IH SCH ×2 (03:00→07:25)
[2022-04-06 04:44] VITALS: BP 153/96
[2022-04-06 05:50] VITALS: BP 179/85
[2022-04-06] MEDS: inSUlin ASPART (NovoLOG) 1 UNIT/0.01 ML (CHARGE PER UNIT) SC SCH ×2 (05:52→10:54)
[2022-04-06] MEDS: predniSONE 20 MG TAB PO SCH ×2 (05:54→06:11)
[2022-04-06 06:15] LABS: BASOPHILS # (AUTO) 0.1 10^3/uL (0.0-0.1); BASOPHILS % (AUTO) 1 % (0-10); EOSINOPHILS % (AUTO) 0 % (0-10); HEMATOCRIT 47 % (40-54); HEMOGLOBIN 16.5 g/dL (13.3-17.7); LYMPHOCYTES # (AUTO) 2.6 10^3/uL (1.0-4.0); LYMPHOCYTES % (AUTO) 17 % (12-44); MEAN CORPUSCULAR HEMOGLOBIN 37 pg (25-34); MEAN CORPUSCULAR HGB CONC 35 g/dL (32-36); MEAN CORPUSCULAR VOLUME 108 fL (80-99); MEAN PLATELET VOLUME 10.6 fL (9.0-12.2); MONOCYTES # (AUTO) 1.5 10^3/uL (0.0-1.0); MONOCYTES % (AUTO) 10 % (0-12); NEUTROPHILS # (AUTO) 10.1 10^3/uL (1.8-7.8); NEUTROPHILS % (AUTO) 68 % (42-75); PLATELET COUNT 230 10^3/uL (130-400); WHITE BLOOD COUNT 14.8 10^3/uL (4.3-11.0)
[2022-04-06 06:34] LABS: POTASSIUM 4.2 MMOL/L (3.6-5.0)
[2022-04-06 06:35] LABS: CALCIUM 9.3 MG/DL (8.5-10.1)
[2022-04-06 06:39] LABS: CREATININE SERUM 0.62 MG/DL (0.60-1.30)
[2022-04-06 07:15] VITALS: BP 160/79
[2022-04-06] MEDS: CEFDINIR 300 MG (OMNICEF) CAP PO SCH (07:49)
[2022-04-06] MEDS ORDERED: ENOXAPARIN 40 MG/0.4 ML (LOVENOX) SYR SC SCH (09:00)
--- NOTE | 2022-04-06 09:19 | Physical Therapy Progress Note ---
Therapy Progress Note Pt found seated in bed upon entry. Refused PT today. PAZ BOATENG PTA Apr 06, 2022 09:19
[2022-04-06 11:31] VITALS: BP 153/90
[2022-04-06 15:40] VITALS: BP 153/90
== END 2022-04-06 15:40 | disposition home health service (06) | DRG 871 ==
LOC: EDUNIT# 01:26 → ER FS 01:28 → ICU 03:31 → 4TH 04-04 15:00
PROVIDERS: ADMIT Family Medicine; ATTEND Internal Medicine
PROC: 5A1945Z Respiratory Ventilation, 24-96 Consecutive Hours (ICD-10-PCS; principal; 2022-04-02)
PROC: 0BH17EZ Insertion of Endotracheal Airway into Trachea, Via Natural or Artificial Opening (ICD-10-PCS; 2022-04-02)
DX: A41.9 Sepsis, unspecified organism (principal); J10.00 Influenza due to other identified influenza virus with unspecified type of pneumonia; J96.01 Acute respiratory failure with hypoxia; J96.02 Acute respiratory failure with hypercapnia; J44.0 Chronic obstructive pulmonary disease with (acute) lower respiratory infection; J44.1 Chronic obstructive pulmonary disease with (acute) exacerbation; Z85.118 Personal history of other malignant neoplasm of bronchus and lung; Z90.2 Acquired absence of lung [part of]; I10 Essential (primary) hypertension; E78.5 Hyperlipidemia, unspecified; E11.9 Type 2 diabetes mellitus without complications; N40.0 Benign prostatic hyperplasia without lower urinary tract symptoms; Z20.822 Contact with and (suspected) exposure to COVID-19; I48.91 Unspecified atrial fibrillation
CPT/HCPCS: 31500; 36415; 51702; 71045; 80048; 80053; 80202; 81000; 82805; 82947; 83605; 83735; 83880; 84100; 84145; 84478; 84484; 85007; 85025; 85027; 85379; 85610; 85730; 87040; 87070; 87077; 87081; 87185; 87205; 87636; 93005; 94002; 94003; 94640; 94760; 94761; 94799; 99291

== ENCOUNTER 2022-07-20 05:34 | Outpatient (CLI) | payer OTHER ==
[~2022-07-20] VITALS: Ht 175.3 cm; Wt 88.5 kg
[~2022-07-20 05:34] MED LIST changes: +ALOG25TA2 PO; +ASCO-262 PO; +ASPI-1238 PO; +ATOR40TA70 PO; +CEFD300C3 PO; +CHOL-34 PO; +EMPA25TA PO; +FINA5TAB6 PO; +ISAV186C2 PO; +LOSA50TA63 PO; +METF-398 PO; +METO100T12 PO; +MULT-1136 PO; +PRED10TA22 PO; +TERA10CA3 PO
== END 2022-07-20 09:27 | disposition home or self-care (01) ==
LOC: PREOP 05:34
PROVIDERS: ATTEND Surgery
DX: Z01.818 Encounter for other preprocedural examination (principal)

== ENCOUNTER 2022-11-14 12:43 | Emergency (ER) | payer OTHER, MEDICARE ==
[~2022-11-14 12:43] MED LIST changes: +POTA-330 PO; -POTA-51 PO
[2022-11-14] MEDS ORDERED: NS IV 1000 ML 1,000 ML IV STA ×2 (12:53→14:48)
[2022-11-14 13:00] LABS: BASOPHILS % (AUTO) 0 % (0-10); EOSINOPHILS % (AUTO) 0 % (0-10); HEMATOCRIT 39 % (40-54); LYMPHOCYTES # (AUTO) 0.7 10^3/uL (1.0-4.0); LYMPHOCYTES % (AUTO) 11 % (12-44); MEAN CORPUSCULAR HEMOGLOBIN 37 pg (25-34); MEAN CORPUSCULAR HGB CONC 36 g/dL (32-36); MEAN CORPUSCULAR VOLUME 103 fL (80-99); MEAN PLATELET VOLUME 10.7 fL (9.0-12.2); MONOCYTES # (AUTO) 0.6 10^3/uL (0.0-1.0); MONOCYTES % (AUTO) 9 % (0-12); NEUTROPHILS # (AUTO) 5.2 10^3/uL (1.8-7.8); NEUTROPHILS % (AUTO) 79 % (42-75); PLATELET COUNT 162 10^3/uL (130-400); WHITE BLOOD COUNT 6.6 10^3/uL (4.3-11.0)
[2022-11-14 13:16] LABS: PROTHROMBIN TIME PATIENT 13.4 SEC (12.2-14.7)
--- NOTE | 2022-11-14 13:25 | ED General ---
General Chief Complaint: Cardiac/General Problems Stated Complaint: LOW BP Nursing Triage Note: PT REPORTS HE TOOK HIS BLOOD PRESSURE BEFORE TAKING HIS MORNING MEDS, WHICH INCLUDE LOSARTAN. HIS BLOOD PRESSURE WAS 60'S/40'S AND HE WENT AHEAD AND TOOK HIS BLOOD PRESSURE MEDICATION. PT CALLED EMS WITH LOW BLOOD PRESSURE AFTER CALLING HIS CHEMO ABOUT HIS BP. Source of Information: Patient, EMS, Spouse History of Present Illness Date Seen by Provider: Nov 14, 2022 Time Seen by Provider: 12:59 Initial Comments 62-year-old male presenting with complaints of low blood pressure and feeling lightheaded. He states that he had checked his blood pressure earlier today and it was only in the 60s over the 40s. Despite having the low blood pressure he had not taken his chronic medications including losartan for blood pressure. He states that his meds are already dispensed on a weekly equipment planner and he had not really thought about avoiding taking the blood pressure medicine. He continued to have low blood pressure and was feeling lightheaded especially when getting up and walking. He had tried to check with his oncology doctor in the clinic advised him to be seen for his low blood pressure. Patient denies any fall or injury. He has not had much to eat or drink in the last day and has only had part of a cup of coffee and small amount of food this morning. He denies any pain or burning with urination, increased cough, increased shortness of breath, fever, chills. Timing/Duration: 4-6 Hours Severity: Moderate Modifying Factors: worse with Movement (Gets more lightheaded with activity) Associated Systoms: No Chest Pain, No Cough, No Diaphoresis, No Fever/Chills, No Headaches, No Loss of Appetite; Malaise; No Nausea/Vomiting, No Rash, No Seizure, No Syncope; Weakness (Generalized) Allergies and Home Medications Allergies Coded Allergies: No Known Drug Allergies (Unverified , 12/26/20) Patient Home Medication List Home Medication List Reviewed: Yes Alogliptin Benzoate (Alogliptin) 25 Mg Tablet, 25 MG PO 1200, (Reported) Entered as Reported by: ISABEL BARBOZA on 04/04/22 1329 Ascorbate Calcium (Vitamin C) 500 Mg Tablet, 500 MG PO DAILY, (Reported) Entered as Reported by: ISABEL BARBOZA on 04/04/22 1329 Aspirin (Aspirin EC) 81 Mg Tablet., 81 MG PO DAILY, (Reported) Entered as Reported by: ISABEL BARBOZA on 04/04/22 1329 Atorvastatin Calcium (Atorvastatin Calcium) 40 Mg Tablet, 20 MG PO HS, (Reported) Entered as Reported by: ISABEL BARBOZA on 04/04/22 1330 Cholecalciferol (Vitamin D3) (Vitamin D3) 25 Mcg (1000 Unit) Tablet, 25 MCG PO DAILY, (Reported) Entered as Reported by: ISABEL BARBOZA on 04/04/22 1331 Empagliflozin (Jardiance) 25 Mg Tablet, 12.5 MG PO DAILY, (Reported) Entered as Reported by: ISABEL BARBOZA on 04/04/22 1331 Finasteride (Finasteride) 5 Mg Tablet, 5 MG PO HS, (Reported) Entered as Reported by: ISABEL BARBOZA on 04/04/22 1332 Isavuconazonium Sulfate (Cresemba) 186 Mg Capsule, 372 MG PO DAILY, (Reported) Entered as Reported by: ISABEL BARBOZA on 04/04/22 1333 Losartan Potassium (Losartan Potassium) 50 Mg Tablet, 50 MG PO DAILY, (Reported) Entered as Reported by: ISABEL BARBOZA on 04/04/22 1334 Metformin HCl (Metformin HCl) 850 Mg Tablet, 850 MG PO BID, (Reported) Entered as Reported by: ISABEL BARBOZA on 04/04/22 1334 Metoprolol Tartrate (Metoprolol Tartrate) 100 Mg Tablet, 50 MG PO BID, (Reporte d) Entered as Reported by: ISABEL BARBOZA on 04/04/22 1335 Multivitamin (Multivitamin) 1 Each Tablet, 1 EACH PO DAILY, (Reported) Entered as Reported by: ISABEL BARBOZA on 04/04/22 1336 Omeprazole (Omeprazole) 20 Mg Capsule.dr, 20 MG PO DAILY, (Reported) Entered as Reported by: OTILIO BACON on 12/26/20 1624 Terazosin HCl (Terazosin HCl) 10 Mg Capsule, 10 MG PO HS, (Reported) Entered as Reported by: ISABEL BARBOZA on 04/04/22 1337 Tiotropium Br/Olodaterol HCl (Stiolto Respimat Inhal [place]) 2.5 Mcg-2.5 Mcg/ Actuation Mist.inhal, 2 PUFF PO DAILY, (Reported) Entered as Reported by: OTILIO BACON on 12/26/20 1624 Review of Systems Review of Systems Constitutional: weakness EENTM: no symptoms reported Respiratory: no symptoms reported Cardiovascular: No chest pain Gastrointestinal: No diarrhea, No nausea, No vomiting Genitourinary: No dysuria Musculoskeletal: no symptoms reported Skin: No rash Psychiatric/Neurological: See HPI Past [id number]-Siftte Hx Patient Social History Tobacco Use?: Yes Tobacco type used: Cigarettes Smoking Status: Current Everyday Smoker Use of E-Cig and/or Vaping dev: No Substance use?: No Alcohol Use?: Yes Alcohol Frequency: Once in a while Pt feels they are or have been: No Immunizations Up To Date First/Initial COVID19 Vaccinat: NO Second COVID19 Vaccination Niko: NO Third COVID19 Vaccination Date: NO Seasonal Allergies Seasonal Allergies: No Past Medical History Surgery/Hospitalization HX: L Lobectomy, L Thoracotomy, Lung Cancer, COPD Surgeries: Yes (LOWER EXTREMITY- CAUGHT IN ) Lobectomy Respiratory: Yes (O2 2L/NC ROUTINELY) Sleep Apnea, COPD Currently Using CPAP: Yes Cardiac: Yes High Cholesterol, Hypertension Neurological: No Genitourinary: No Gastrointestinal: No Musculoskeletal: No Endocrine: No HEENT: No Cancer: Yes Lung What Type of Treatment Did You: Surgical Intervention Psychosocial: No Integumentary: No Blood Disorders: No Physical Exam Vital Signs Vital Signs - First Documented 11/14/22 13:02 Temp 36.5 Pulse 94 Resp 16 B/P (MAP) 80/45 (57) Pulse Ox 96 Capillary Refill : Less Than 3 Seconds Height, Weight, BMI Height: '" Weight: lbs. oz. kg; 28.79 BMI Method: General Appearance: No Apparent Distress, Chronically ill HEENT: PERRL/EOMI, Pharynx Normal; No Moist Mucous Membranes (Slightly dry mucous membranes) Neck: Full Range of Motion, Normal Inspection, Non Tender, Supple Respiratory: Chest Non Tender, Lungs Clear, No Accessory Muscle Use, No Respiratory Distress, Decreased Breath Sounds Cardiovascular: Regular Rate, Rhythm, Normal Peripheral Pulses Gastrointestinal: Normal Bowel Sounds, No Pulsatile Mass, Non Tender, Soft Rectal: Deferred Extremity: Normal Capillary Refill, Normal Inspection, No Pedal Edema Neurologic/Psychiatric: Alert, Oriented x3 Skin: Normal Color, Warm/Dry Procedures/Interventions Date of ETT Placement: Apr 02, 2022 Time of ETT Placement: 334 Progress/Results/Core Measures Suspected Sepsis SIRS Temperature: Pulse: 94 Respiratory Rate: 16 Laboratory Tests 11/14/22 12:54: White Blood Count 6.6 Blood Pressure 80 /45 Mean: 57 Laboratory Tests 11/14/22 12:54: Creatinine 0.61, INR Comment 1.0, Platelet Count 162, Total Bilirubin 0.6 Results/Orders Lab Results Laboratory Tests Test 11/14/22 12:54 11/14/22 13:56 Range/Units White Blood Count 6.6 4.3-11.0 10^3/uL Red Blood Count 3.81 L 4.30-5.52 10^6/uL Hemoglobin 14.0 13.3-17.7 g/dL Hematocrit 39 L 40-54 % Mean Corpuscular Volume 103 H 80-99 fL Mean Corpuscular Hemoglobin 37 H 25-34 pg Mean Corpuscular Hemoglobin Concent 36 32-36 g/dL Red Cell Distribution Width 17.9 H 10.0-14.5 % Platelet Count 162 130-400 10^3/uL Mean Platelet Volume 10.7 9.0-12.2 fL Immature Granulocyte % (Auto) 1 % Neutrophils (%) (Auto) 79 H 42-75 % Lymphocytes (%) (Auto) 11 L 12-44 % Monocytes (%) (Auto) 9 0-12 % Eosinophils (%) (Auto) 0 0-10 % Basophils (%) (Auto) 0 0-10 % Neutrophils # (Auto) 5.2 1.8-7.8 10^3/uL Lymphocytes # (Auto) 0.7 L 1.0-4.0 10^3/uL Monocytes # (Auto) 0.6 0.0-1.0 10^3/uL Eosinophils # (Auto) 0.0 0.0-0.3 10^3/uL Basophils # (Auto) 0.0 0.0-0.1 10^3/uL Immature Granulocyte # (Auto) 0.0 0.0-0.1 10^3/uL Prothrombin Time 13.4 12.2-14.7 SEC INR Comment 1.0 0.8-1.4 Activated Partial Thromboplast Time 26 24-35 SEC Sodium Level 127 L 135-145 MMOL/L Potassium Level 5.9 H 3.6-5.0 MMOL/L Chloride Level 91 L 98-107 MMOL/L Carbon Dioxide Level 28 21-32 MMOL/L Anion Gap 8 5-14 MMOL/L Blood Urea Nitrogen 21 H 7-18 MG/DL Creatinine 0.61 0.60-1.30 MG/DL Estimat Glomerular Filtration Rate 107 BUN/Creatinine Ratio 34 Glucose Level 184 H 70-105 MG/DL Calcium Level 8.6 8.5-10.1 MG/DL Corrected Calcium 9.2 8.5-10.1 MG/DL Magnesium Level 1.8 1.6-2.4 MG/DL Total Bilirubin 0.6 0.1-1.0 MG/DL Aspartate Amino Transf (AST/SGOT) 34 5-34 U/L Alanine Aminotransferase (ALT/SGPT) 16 0-55 U/L Alkaline Phosphatase 67 40-136 U/L Troponin I < 0.30 <0.30 NG/ML Pro-B-Type Natriuretic Peptide 197.0 H <125.0 PG/ML Total Protein 5.9 L 6.4-8.2 GM/DL Albumin 3.3 3.2-4.5 GM/DL Urine Color YELLOW Urine Clarity CLEAR Urine pH 6.5 5-9 Urine Specific [place] <=1.005 1.016-1.022 Urine Protein NEGATIVE NEGATIVE Urine Glucose (UA) 3+ H NEGATIVE Urine Ketones NEGATIVE NEGATIVE Urine Nitrite NEGATIVE NEGATIVE Urine Bilirubin NEGATIVE NEGATIVE Urine Urobilinogen 0.2 < = 1.0 MG/DL Urine Leukocyte Esterase NEGATIVE NEGATIVE Urine RBC (Auto) NEGATIVE NEGATIVE Urine RBC NONE /HPF Urine WBC NONE /HPF Urine Squamous Epithelial Cells RARE /HPF Urine Crystals NONE /LPF Urine Bacteria NEGATIVE /HPF Urine Casts NONE /LPF Urine Mucus NEGATIVE /LPF Urine Culture Indicated NO My Orders Orders - EDGARD KIRBY MD Cbc With Automated Diff (11/14/22 12:53) Magnesium (11/14/22 12:53) Ekg Tracing (11/14/22 12:53) Comprehensive Metabolic Panel (11/14/22 12:53) Protime With Inr (11/14/22 12:53) Partial Thromboplastin Time (11/14/22 12:53) O2 (11/14/22 12:53) Monitor-Rhythm Ecg Trace Only (11/14/22 12:53) Ed Iv/Invasive Line Start (11/14/22 12:53) Troponin I Fs (11/14/22 12:53) Probnp Fs (11/14/22 12:53) Ns Iv 1000 Ml (Sodium Chloride 0.9%) (11/14/22 12:53) Ua Culture If Indicated (11/14/22 13:25) Ns Iv 1000 Ml (Sodium Chloride 0.9%) (11/14/22 14:48) Dexamethasone Injection (Decadron Injec (11/14/22 14:48) Ed Admission (Communication) (11/14/22 14:54) Vital Signs/I&O 11/14/22 11/14/22 11/14/22 13:02 14:18 15:20 Temp 36.5 36.5 Pulse 94 85 86 91 96 Resp 16 16 B/P (MAP) 80/45 (57) 84/42 (56) 89/60 71/39 (50) 54/32 (39) Pulse Ox 96 97 Capillary Refill : Less Than 3 Seconds Blood Pressure Mean: 57 Progress Note #1: Progress Note Potential diagnosis of dehydration, UTI, pneumonia, electrolyte abnormality, renal failure, hepatic failure. Peripheral IV established by EMS in route to the emergency department. Normal saline IV fluids were infusing on arrival to the ED. Patient denies any nausea or vomiting. He was awake and alert and answering questions but noted to have blood pressure of 81/42. He was afebrile and his oxygen saturation was 97% on room air. Obtain labs to check complete blood count, comprehensive metabolic profile, cardiac enzymes, urinalysis. Obtain electrocardiogram to evaluate for cardiac arrhythmia or ischemia. Placed on cardiac monitor technician and my initial interpretation was that the showed a sinus rhythm with a heart rate in the 80s. Plan to administer second liter of normal saline and then check orthostatic vital signs. Progress Note #2: Time: 14:14 Progress Note Complete blood count showed white blood cell count of 6.6. Hemoglobin was okay at 14. His comprehensive metabolic panel did not show a low sodium of 127 and elevated potassium to 5.9. His renal function was normal with a creatinine of 0.61. His urinalysis was dilute with specific gravity less than 1.005. There were no signs of infection. His electrocardiogram showed sinus rhythm without ST elevation. After the second liter of IV fluids infused orthostatic vital signs were obtained and while laying down his blood pressure was 84/42 but as he went to sit it dropped to 71/39 and when he went to stand it was 54/32. He states that while standing there he was not having any dizziness or feeling lightheaded. However he was not walking or moving around. With him still being hypotensive despite the 2 L of IV fluids we will check with Dr. Campbell the [facility] pitalist on-call for unassigned patients and patients with outside primary care providers. [address] Campbell for the hospitalist service. Reviewed patient's presentation and recent history of finishing chemotherapy and radiation for lung cancer 3 weeks ago. He had a low blood pressure this morning prior to taking his losartan and regular medications at home. Since then his blood pressures have been lower. He has felt lightheaded and dizzy but did not ever pass out or fall. His blood pressure despite the IV fluids was still anywhere from 78-88 for the systolic pressure. He remains awake and alert and denies having any dizziness or lightheadedness while sitting in the bed still. However with his continued hypotension as well as hyponatremia and hyperkalemia, Dr. Campbell accepted the patient for admission. He recommended giving an additional liter of normal saline as well as Decadron 4 mg IV out of concern for possible adrenal insufficiency. He wanted the patient to be admitted to the ICU for monitoring and if his pressures did not improve with the fluid and steroid and he would need to start a pressor as well. 1505 when I was reviewing the plan and findings with the patient and his he interrupted me and said that he was not going to be admitted and he wanted to go home. He was feeling less lightheaded and just wanted to go home. He was also complaining of pain from sitting in the bed for extended period of time. He voiced understanding about risks of leaving AGAINST MEDICAL ADVICE and not being admitted. With the low blood pressure he was at risk of having stroke, heart attack, ischemia to his organs. He voiced understanding of all this but still wanted to go home and refused admission. He also refused additional fluids or any additional treatment here in the ED. I updated Dr. Campbell about the patient leaving AMA rather than being admitted to the ICU. ECG Initial ECG Impression Date: Nov 14, 2022 Initial ECG Impression Time: 13:13 Initial ECG Rate: 85 Initial ECG Rhythm: Normal Sinus Initial ECG Comparisson: Unchanged (04/02/2022) Comment On my personal interpretation and review the electrocardiogram shows a normal sinus rhythm with a heart rate of 85 bpm. NM interval [address] elevation. There is an incomplete right bundle branch block. QT interval 398 ms with a QTc interval 440 ms. Overall appears similar to prior tracing from April 02, 2022. Departure Impression Primary Impression: Hypotension Qualified Codes: I95.9 - Hypotension, unspecified Additional Impressions: Shock Hyponatremia Hyperkalemia Disposition: AGAINST MEDICAL ADVICE Condition: Against Medical Advice Departure-Patient Inst. Decision time for Depature: 15:05 Referrals: NO,LOCAL PHYSICIAN (PCP/Family) Primary Care Physician Patient Instructions: Low Blood Pressure (DC), Shock Add. Discharge Instructions: You are leaving against medical advice. We recommend that you be admitted for additional IV fluids and steroids to help with your blood pressure. Make sure that you take the losartan medication from your medicines that you are taking every day. At this point you need to hold the losartan until your blood pressure is doing better. If you have worsening symptoms or or passing out then you would need to be seen and admitted for IV steroids and IV fluids to help with your blood pressure and symptoms of shock. Make sure that you have assistance with getting up and moving as you do have your blood pressure drop to 50/30 when you stand up. You are at risk of fainting passing out and possibly hurting yourself from the fall as well. All discharge instructions reviewed with patient and/or family. Voiced understanding. EDGARD KIRBY MD Nov 14, 2022 13:25
[2022-11-14 13:29] LABS: BUN/CREATININE RATIO 34; CARBON DIOXIDE 28 MMOL/L (21-32); CHLORIDE 91 MMOL/L (98-107); CREATININE SERUM 0.61 MG/DL (0.60-1.30); GFR ESTIMATED 107; POTASSIUM 5.9 MMOL/L (3.6-5.0); SODIUM 127 MMOL/L (135-145)
[2022-11-14 13:30] LABS: ALANINE AMINOTRANSFERASE 16 U/L (0-55); ALBUMIN 3.3 GM/DL (3.2-4.5); ALKALINE PHOSPHATASE 67 U/L (40-136); BILIRUBIN,TOTAL 0.6 MG/DL (0.1-1.0); CALCIUM 8.6 MG/DL (8.5-10.1); GLUCOSE 184 MG/DL (70-105); MAGNESIUM 1.8 MG/DL (1.6-2.4); TOTAL PROTEIN 5.9 GM/DL (6.4-8.2)
[2022-11-14 14:18] VITALS: BP_SYST 54; BP_SYST 71; BP_SYST 84; BP_DIAS 32; BP_DIAS 39; BP_DIAS 42
[2022-11-14 14:20] LABS: BACTERIA,URINE NEGATIVE /HPF; BILIRUBIN,URINE NEGATIVE (NEGATIVE); CLARITY,URINE CLEAR; COLOR,URINE YELLOW; GLUCOSE, URINE (UA) 3+ (NEGATIVE); KETONES,URINE NEGATIVE (NEGATIVE); LEUKOCYTE ESTERASE ,URINE NEGATIVE (NEGATIVE); NITRITE,URINE NEGATIVE (NEGATIVE); PH,URINE 6.5 (5-9); PROTEIN,URINE NEGATIVE (NEGATIVE); SQUAMOUS EPITHELIAL CELL,UR RARE /HPF
[2022-11-14 15:20] VITALS: BP 89/60
== END 2022-11-14 15:25 | disposition left against medical advice (07) ==
LOC: EDUNIT# 12:43 → ER FS 12:45
DX: I95.9 Hypotension, unspecified (principal); E87.1 Hypo-osmolality and hyponatremia; E87.5 Hyperkalemia; J44.9 Chronic obstructive pulmonary disease, unspecified; G47.30 Sleep apnea, unspecified; F17.210 Nicotine dependence, cigarettes, uncomplicated; Z91.148 Patient's other noncompliance with medication regimen for other reason; Z99.81 Dependence on supplemental oxygen; Z99.89 Dependence on other enabling machines and devices; Z28.310 Unvaccinated for COVID-19
CPT/HCPCS: 36415; 80053; 81000; 83735; 83880; 84484; 85025; 85610; 85730; 93005; 93041